=== PATIENT | female | born 1945 | race Caucasian/White ===

== ENCOUNTER → 2022-05-03 11:46 | Outpatient (BNVA) | payer MEDICARE, SELFPAY | PROVIDERS: PCP Internal Medicine; Visit Provider Psychiatry & Neurology Psychiatry | DX: F31.32 Bipolar disorder, current episode depressed, moderate (principal) | CPT/HCPCS: 90833; 99212 ==

== ENCOUNTER → 2022-08-23 11:10 | Outpatient (BNVA) | payer MEDICARE, SELFPAY | PROVIDERS: PCP Internal Medicine; Visit Provider Psychiatry & Neurology Psychiatry | DX: G93.32 Myalgic encephalomyelitis/chronic fatigue syndrome (principal); M79.7 Fibromyalgia; F31.32 Bipolar disorder, current episode depressed, moderate | CPT/HCPCS: 90833; 99212 ==

== ENCOUNTER 2023-01-11 15:50 | Outpatient (AMB) | payer MEDICARE, SELFPAY ==
--- NOTE | 2023-01-11 16:18 | A.OFFPSYCH_ITS ---
Intake Intake Visit Reasons: depression Allergies No Known Allergies Allergy (Verified 05/03/22 11:27) Medication List - Last Reconciled 02/12/23 by Abraham Jimenes MD lamotrigine 100 mg PO DAILY modafinil (Provigil) 50 - 100 mg (0.5 - 1 x 100 mg) PO DAILY omeprazole 20 mg PO BID oxcarbazepine 300 mg PO .QHS 90 days venlafaxine ER 75 mg PO DAILY HPI- Psychiatric Chief Complaint: depression HPI Narrative: Pt seen in f/u mood has been ok feels modafanil very helpful has been taking in nieces kids at times . Fibromyalgia has been quite problematic for her associated with chronic fatigue. The modafinil is somewhat helpful. She has melancholic and ruminating at times regarding the of his son from cancer and memories of this was again triggered by dealing with other cancer in the family.at times ruminates about her past behavior when she was manic and drinking and quite impulsive sexually and drinking heavily even when . Her family and even her ex- remain quite kind in loving to the patient and have excepted her past behavior in the context of bipolar disorder Past Psychiatric History: hx bipolar dx not manic in years has been at php has hx of CFS fibro Mental Status Exam Mental Status Exam Narrative: Mental Status Exam Narrative: Appearance: Casually dressed Behavior: Cooperative appropriate psychomotor: Within normal limits Speech: Normal volume and prosody Thought proccess logical and goal-directed some rumination Thought content: Future oriented no self-harming thoughts recurrent ruminations on of her son from cancer and and thoughts of her past behavior when manic Mood: Mild dysphoria Affect: Appropriate to mood SI:denies HI:denies VH/AH:none Delusions: None Insight/judgment: Good insight and judgment Memory/cog: Intact Reports difficulty with motivation and attention Assessment and Plan Assessment & Plan (1) Bipolar 1 disorder, depressed, moderate: Status: Acute Code(s): F31.32 - Bipolar disorder, current episode depressed, moderate (2) Chronic fatigue disorder: Status: Acute Code(s): G93.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 (3) Fibromyalgia: Status: Acute Code(s): M79.7 - Fibromyalgia Plan Patient does have mild dysphoria has been somewhat socially isolated some of this related to issues related to chronic fatigue and pain patient denies SI no manic symptoms have been triggered by use of modafinil she does feel her quality of life has been better with less fatigue improved energy and increased ability to function could increase modafinil monitor mood closely Could take venlafaxine at bedtime in case contributing to fatigue other options could include augmentation with L methyl folate which may help with both mood and energy consider low-dose Latuda Counseling and coordination of Care Pt. Self Management counseling: Behavior activation Medication management counseling: Effectiveness, Side effects and Dosing range Diagnosis and Prognosis Counseling: Accuracy of diagnosis, Impact of diagnosis on life functions, Impact of family relationship, Problematic behaviors secondary to diagnosis and Adequacy of current interventions Details: I spent [39] minutes reviewing the record, seeing the patient and documenting in the medical record. Counseling provided to the patient/caregiver as outlined below. Addressed patient/caregiver concerns regarding current medication regime including effective adherence. Addressed patient/caregiver concerns regarding diagnosis and prognosis including accuracy of diagnosis, prognosis over time, impact of diagnosis. Addressed patient/caregiver concerns regarding impact of recent stressors. PFSH Medical History (Updated 05/03/22 @ 11:34 by Abraham Jimenes MD) Breast cancer in female Chronic fatigue disorder Osteoarthritis Surgical History (Updated 05/03/22 @ 11:32 by Abraham Jimenes MD) H/O spinal fusion Social History: lives alone 2 sons 1 2 b ENJOYS taking care of grandchildren at times she is retired she used to work an offensive coordinator as an transport assistant Substance History: hx alcohol dependence sober x yrs Trauma History: none Coding Level of Care Code Est Pt Level 3 (41857) Therapy 30m w/E&M (85957) Diagnoses Bipolar 1 disorder, depressed, moderate F31.32 Chronic fatigue disorder G93.32 Fibromyalgia M79.7
== END 2023-01-11 17:42 | disposition home or self-care (01) ==
LOC: HO.HOP 15:50
PROVIDERS: PCP Internal Medicine; Visit Provider Psychiatry & Neurology Psychiatry
DX: F31.32 Bipolar disorder, current episode depressed, moderate (principal); G93.32 Myalgic encephalomyelitis/chronic fatigue syndrome; M79.7 Fibromyalgia
CPT/HCPCS: 90833; 99213

== ENCOUNTER → 2023-01-11 15:50 | Outpatient (BNVA) | payer MEDICARE, SELFPAY | PROVIDERS: PCP Internal Medicine; Visit Provider Psychiatry & Neurology Psychiatry | DX: F31.32 Bipolar disorder, current episode depressed, moderate (principal); G93.32 Myalgic encephalomyelitis/chronic fatigue syndrome; M79.7 Fibromyalgia | CPT/HCPCS: 90833; 99212 ==

== ENCOUNTER 2023-05-26 11:14 | Outpatient (REF) | payer MEDICARE, SELFPAY ==
[2023-05-26 12:46] LABS: MANUAL DIFF FLAG NO
[2023-05-26 13:21] LABS: Basophils Absolute Auto 0.1 X10*3/uL (0.0-0.2); Basophils Percent Auto 1.2 % (0-2); Eosinophils Absolute Auto 0.2 X10*3/uL (0.0-0.4); Eosinophils Percent Auto 2.8 % (0-4); Hematocrit 40.4 % (37.0-47.0); Hemoglobin 13.3 g/dl (12.0-16.0); Imm Gran Abs Auto 0.02 X10*3/uL (0.00-0.03); Imm Gran Pct Auto 0.3 % (0.0-0.4); Lymphocytes Absolute Auto 2.2 X10*3/uL (1.2-4.9); Lymphocytes Percent Auto 37.1 % (20-40); Mean Corpuscular HGB Conc 32.9 g/dl (31.0-35.0); Mean Corpuscular Hemoglobin 32.4 pg (27.0-33.0); Mean Corpuscular Volume 98.5 fL (80.0-98.0); Mean Platelet Volume 10.5 fL (9.4-12.3); Monocytes Absolute Auto 0.4 X10*3/uL (0.1-1.2); Monocytes Percent Auto 6.5 % (2-11); Neutrophils Absolute Auto 3.1 x10*3/uL (2.0-8.3); Neutrophils Percent Auto 52.1 % (45-73); Platelet Count 248 X10*3/uL (160-400); Red Cell Distribution Width 12.4 % (11.0-16.0)
[2023-05-26 14:00] LABS: Alanine Aminotransferase 16 U/L (0-31); Albumin Level 4.3 g/dL (3.5-5.0); Alkaline Phosphatase 57 U/L (39-117); Anion Gap 11 (12-20); Aspartate Amino Transferase 24 U/L (5-31); Bilirubin Total 0.4 mg/dL (0.0-1.0); Blood Urea Nitrogen 19 mg/dL (9-16); Calcium 10.2 mg/dL (8.4-10.2); Carbon Dioxide 28 mmol/L (22-29); Chloride 104 mmol/L (96-108); Estimated Glomerular Filt Rate 60; Glucose Random 92 mg/dL (60-115); Potassium 4.5 mmol/L (3.3-5.1); Sodium 138 mmol/L (135-145); Total Protein 7.7 g/dL (6.5-8.0)
[2023-05-26 14:05] LABS: Cholesterol 260 mg/dL (<200); HDL Cholesterol 94 mg/dL (>40); LDL Cholesterol Calculated 150 mg/dL (<100); Triglycerides 81 mg/dL (<150)
[2023-05-26 14:21] LABS: Vitamin B12 886 pg/mL (200-900)
[2023-05-26 15:12] LABS: Reflex LDLD? No
[2023-05-26 20:29] LABS: Folate 15.5 ng/mL (> or = 4.0)
[2023-05-29 21:08] LABS: Lamotrigine Lamictal 1.5 mcg/mL (2.5-15.0)
== END 2023-05-26 11:15 | disposition home or self-care (01) ==
LOC: HO.LAB 11:14
PROVIDERS: PCP Internal Medicine; Visit Provider Psychiatry & Neurology Psychiatry
DX: G93.32 Myalgic encephalomyelitis/chronic fatigue syndrome (principal); F31.32 Bipolar disorder, current episode depressed, moderate; M19.90 Unspecified osteoarthritis, unspecified site; Z79.899 Other long term (current) drug therapy
CPT/HCPCS: 36415; 80053; 80061; 80175; 82607; 82746; 84443; 85025; 99212

== ENCOUNTER 2023-05-26 11:14 | Outpatient (AMB) | payer MEDICARE, SELFPAY ==
--- NOTE | 2024-03-11 09:32 | MHC.OFFVISPS ---
Intake Intake Visit Reasons: Depression Allergies No Known Allergies Allergy (Verified 05/03/22 11:27) Medication List - Last Reconciled 05/26/23 by Abraham Jimenes MD lamotrigine 100 mg PO DAILY modafinil (Provigil) 50 - 100 mg (0.5 - 1 x 100 mg) PO DAILY omeprazole 20 mg PO BID oxcarbazepine 300 mg PO .QHS 90 days venlafaxine ER 75 mg PO DAILY HPI- Psychiatric Chief Complaint: Depression HPI Narrative: Patient seen psychiatric follow-up. Patient tends to downplay many of her symptoms has endorsed no symptoms on the PHQ-9 and LANA. Patient has chronic fatigue and issues related to chronic pain. Narcotics during the day in the past Ultram she has felt overly medicated and at times confused. Patient has been flat a motivational feels low-dose modafinil has been somewhat helpful there is a longstanding history of chronic fatigue. History of chronic hip and spinal pain Patient on Lamictal 100 mg Effexor modafinil no clear manic elevated episodes. She does tend to ruminate regarding the past many years ago when it had significantly interfered with her ex- and children. Patient remains sober from alcohol for many years. She has been more socially isolated does see her family. Has a level of chronic despair denies any active self-harming thoughts Past Psychiatric History: hx bipolar dx not manic in years has been at [facility] has hx of CFS fibro Mental Status Exam Mental Status Exam Narrative: Mental Status Exam Narrative: Appearance: Casually dressed Behavior: Cooperative appropriate psychomotor: Within normal limits Speech: Normal volume and prosody Thought proccess logical rumination Thought content: Focused on lack of quality of life dealing with pain ongoing Mood: Depressed constricted Affect: Appropriate to mood constricted SI:denies question some degree of helplessness dealing with chronic pain HI:denies VH/AH:none Delusions: None Insight/judgment: Fair insight at times regarding self-care Memory/cog: Alert does describe some difficulty with attention at times oriented x4 Reports difficulty with motivation and attention Assessment and Plan Assessment & Plan (1) Bipolar 1 disorder, depressed, moderate: Status: Acute Code(s): F31.32 - Bipolar disorder, current episode depressed, moderate (2) Chronic fatigue disorder: Status: Acute Code(s): G93.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 (3) Fibromyalgia: Status: Acute Code(s): M79.7 - Fibromyalgia Plan Patient with some periods of variable attention unclear related to any progressive cognitive impairment versus medication effect versus other etiologies. Discussed with patient check labs DC if any contributing factors including B12 folate TSH electrolytes discussed options for more intensive neurological evaluation did not want to complete a Lotus no burning on urination. Discussed option brain MRI Orders: Orders Comprehensive Met. 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, F31.32 - Bipolar disorder, current episode depressed, moderate, M19.90 - Unspecified osteoarthritis, unspecified site Lamotrigine Lamictal 05/26/23 G93.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, F31.32 - Bipolar disorder, current episode depressed, moderate, M19.90 - Unspecified osteoarthritis, unspecified site Vitamin B12 and Folate 05/26/23 G93.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, F31.32 - Bipolar disorder, current episode depressed, moderate, M19.90 - Unspecified osteoarthritis, unspecified site Lipid Panel with Reflex 05/26/23 G93.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, F31.32 - Bipolar disorder, current episode depressed, moderate, M19.90 - Unspecified osteoarthritis, unspecified site Counseling and coordination of Care Details-Self Mgmt counseling: Issues related to feeling lack of quality of life strategies to help improve options to get more support in the house Issues related to managing life with issues related to chronic pain has been dysthymic discussed option of L methyl folate Medication management counseling: Effectiveness and Side effects Details-Med Mgmt counseling: No manic symptoms noted Diagnosis and Prognosis Counseling: Adequacy of current interventions Details: I spent [35] minutes reviewing the record, seeing the patient and documenting in the medical record. Counseling provided to the patient/caregiver as outlined below. Addressed patient/caregiver concerns regarding current medication regime including effective adherence. Addressed patient/caregiver concerns regarding diagnosis and prognosis including accuracy of diagnosis, prognosis over time, impact of diagnosis. Addressed patient/caregiver concerns regarding impact of recent stressors. 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
== END 2023-05-26 12:43 | disposition home or self-care (01) ==
LOC: HO.HOP 11:14
PROVIDERS: PCP Internal Medicine; Visit Provider Psychiatry & Neurology Psychiatry
DX: F31.32 Bipolar disorder, current episode depressed, moderate (principal); G93.32 Myalgic encephalomyelitis/chronic fatigue syndrome; M79.7 Fibromyalgia
CPT/HCPCS: 99214

== ENCOUNTER → 2023-07-28 11:49 | Outpatient (BNVA) | payer MEDICARE, SELFPAY | PROVIDERS: PCP Internal Medicine; Visit Provider Psychiatry & Neurology Psychiatry | DX: F31.32 Bipolar disorder, current episode depressed, moderate (principal); G93.32 Myalgic encephalomyelitis/chronic fatigue syndrome; M79.7 Fibromyalgia; M19.90 Unspecified osteoarthritis, unspecified site | CPT/HCPCS: 99212 ==

== ENCOUNTER → 2023-07-28 11:49 | Outpatient (AMB) | payer MEDICARE, SELFPAY ==
--- NOTE | 2023-07-28 13:03 | MHC.OFFVISPS ---
Intake Intake Visit Reasons: depression Allergies No Known Allergies Allergy (Verified 05/03/22 11:27) HPI- Psychiatric Chief Complaint: depression HPI Narrative: Patient seen psychiatric follow-up. She has been somewhat discouraged tends to downplay her symptoms. She has had more fatigue periods of lower energy and amotivation she does have history of chronic fatigue which had been doing much better. She does find Provigil helpful and apparently this has not contributed reportedly to agitation anxiety or [place]. She has been on very low-dose Lamictal Trileptal has never allowed higher therapeutic doses venlafaxine she has been times ruminating regarding her past behavior when she was younger and how she treated other people particularly men she would dated when she had been manic Past Psychiatric History: hx bipolar dx not manic in years has been at php has hx of CFS fibro Mental Status Exam Mental Status Exam Narrative: Mental Status Exam Narrative: Appearance: Casually dressed Behavior: Cooperative appropriate psychomotor: Within normal limits Speech: Normal volume and prosody Thought proccess logical and goal-directed some rumination Thought content: Future oriented no self-harming thoughts connected with grandchildren rumination of her past behavior when manic Mood: Mild dysphoria Affect: Appropriate to mood constricted SI:denies question some degree of helplessness HI:denies VH/AH:none Delusions: None Insight/judgment: Fair insight at times regarding self-care Memory/cog: Alert does describe some difficulty with attention at times oriented x4 Reports difficulty with motivation and attention Assessment and Plan Assessment & Plan (1) Bipolar 1 disorder, depressed, moderate: Status: Acute Code(s): F31.32 - Bipolar disorder, current episode depressed, moderate (2) Chronic fatigue disorder: Status: Acute Code(s): 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 Monitor cognitive issues patient questioning her attention some of this may relate to pain management has significant chronic pain some of which related to history of back surgery and chronic bursitis Medications: Changed From lamotrigine 100 mg PO DAILY 90 tabs 1RF To lamotrigine 150 mg PO BEDTIME 30 tabs 1RF 30 days Counseling and coordination of Care Pt. Self Management counseling: Breathing, Exercise and Maintenance-social rhythm Details-Self Mgmt counseling: Encourage daily activities Medication management counseling: Effectiveness and Side effects Diagnosis and Prognosis Counseling: Impact of diagnosis on life functions and Adequacy of current interventions Details-Diagnosis/Prognosis counseling: Also discussed option of L methyl folate for augmentation Lamictal increased to 150 mg monitor mood and response encourage regular counseling patient has been resistant to this recommendation for an extended period of time Details: I spent [40] minutes reviewing the record, seeing the patient and documenting in the medical record. Counseling provided to the patient/caregiver as outlined below. Addressed patient/caregiver concerns regarding current medication regime including effective adherence. Addressed patient/caregiver concerns regarding diagnosis and prognosis including accuracy of diagnosis, prognosis over time, impact of diagnosis. Addressed patient/caregiver concerns regarding impact of recent stressors. 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
== END ==
PROVIDERS: PCP Internal Medicine; Visit Provider Psychiatry & Neurology Psychiatry
DX: F31.32 Bipolar disorder, current episode depressed, moderate (principal); G93.32 Myalgic encephalomyelitis/chronic fatigue syndrome; M79.7 Fibromyalgia; M19.90 Unspecified osteoarthritis, unspecified site
CPT/HCPCS: 90833; 99213

== ENCOUNTER 2023-12-13 14:10 | Outpatient (AMB) | payer MEDICARE, SELFPAY ==
--- NOTE | 2023-12-13 21:14 | A.OFFPSYCH_ITS ---
Intake Intake Visit Reasons: depression Allergies No Known Allergies Allergy (Verified 05/03/22 11:27) Medication List - Last Reconciled 12/13/23 by Abraham Jimenes MD albuterol sulfate 90 mcg/actuation inhalation lamotrigine 100 mg PO DAILY modafinil (Provigil) 50 - 100 mg (0.5 - 1 x 100 mg) PO DAILY omeprazole 20 mg PO BID oxcarbazepine 300 mg PO .QHS 90 days venlafaxine ER 75 mg PO DAILY HPI- Psychiatric Chief Complaint: depression HPI Narrative: Patient appears somewhat depressed apathetic and withdrawn she has had some periods of confusion when taking pain medications currently has stopped use of Ultram and low-dose oxycodone. She is having difficulty sleeping has significant chronic pain from fibromyalgia chronic back other orthopedic problems she is somewhat demoralized has not wanted to make any medication changes she has had some difficulty at times with working attention sometimes this may relate to pain medication Past Psychiatric History: hx bipolar dx not manic in years has been at [facility] has hx of CFS fibro Mental Status Exam Mental Status Exam Narrative: Mental Status Exam Narrative: Appearance: Casually dressed Behavior: Cooperative appropriate psychomotor: Within normal limits Speech: Normal volume and prosody Thought proccess logical rumination Thought content: Focused on lack of quality of life dealing with pain Mood: Depressed constricted Affect: Appropriate to mood constricted SI:denies question some degree of helplessness dealing with chronic pain at times wishes she were but denies any plan or intent HI:denies VH/AH:none Delusions: None Insight/judgment: Fair insight at times regarding self-care Memory/cog: Alert does describe some difficulty with attention at times oriented x4 Reports difficulty with motivation and attention Assessment and Plan Assessment & Plan (1) Bipolar 1 disorder, depressed, moderate: Status: Acute Code(s): F31.32 - Bipolar disorder, current episode depressed, moderate (2) Chronic fatigue disorder: Status: Acute Code(s): G93.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 (3) Fibromyalgia: Status: Acute Code(s): M79.7 - Fibromyalgia Plan Lamictal decreased higher dose may have contributed to some periods of lack of alertness check labs encourage increase activities Consider brain MRI patient not wanting to have workup states she will be okay no active self-harming thoughts Medications: Changed From lamotrigine 150 mg PO BEDTIME 30 days 30 tabs 1RF To lamotrigine 100 mg PO DAILY 90 tabs 1RF Counseling and coordination of Care Details-Self Mgmt counseling: Issues related to low mood as chronic pain does feel connected with grandchildren and neighbors Medication management counseling: Effectiveness, Side effects and Dosing range Diagnosis and Prognosis Counseling: Impact of diagnosis on life functions and Adequacy of current interventions Details-Diagnosis/Prognosis counseling: Strongly urged consideration of Latuda or Vraylar patient has felt modafinil helpful Details: I spent [39] minutes reviewing the record, seeing the patient and documenting in the medical record. Counseling provided to the patient/caregiver as outlined below. Addressed patient/caregiver concerns regarding current medication regime including effective adherence. Addressed patient/caregiver concerns regarding diagnosis and prognosis including accuracy of diagnosis, prognosis over time, impact of diagnosis. Addressed patient/caregiver concerns regarding impact of recent stressors. [facility] Medical History (Updated 05/03/22 @ 11:34 by Abraham Jimenes MD) Chronic fatigue disorder Osteoarthritis Breast cancer in female Surgical History (Updated 05/03/22 @ 11:32 by Abraham Jimenes MD) H/O spinal fusion Social History: lives alone 2 sons 1 2 b ENJOYS taking care of grandchildren at times she is retired she used to work an psychology assistant as an election assistant Substance History: hx alcohol dependence sober x yrs Trauma History: none Coding Level of Care Code Est Pt Level 3 (77867) Therapy 30m w/E&M (45029) Diagnoses Bipolar 1 disorder, depressed, moderate F31.32 Chronic fatigue disorder G93.32 Fibromyalgia M79.7
== END 2023-12-13 15:54 | disposition home or self-care (01) ==
LOC: HO.HOP 14:10
PROVIDERS: PCP Internal Medicine; Visit Provider Psychiatry & Neurology Psychiatry
DX: F31.32 Bipolar disorder, current episode depressed, moderate (principal); G93.32 Myalgic encephalomyelitis/chronic fatigue syndrome; M79.7 Fibromyalgia
CPT/HCPCS: 90833; 99213

== ENCOUNTER → 2023-12-13 14:10 | Outpatient (BNVA) | payer MEDICARE, SELFPAY | PROVIDERS: PCP Internal Medicine; Visit Provider Psychiatry & Neurology Psychiatry | DX: F31.32 Bipolar disorder, current episode depressed, moderate (principal); G93.32 Myalgic encephalomyelitis/chronic fatigue syndrome; M79.7 Fibromyalgia | CPT/HCPCS: 99212 ==

== ENCOUNTER 2024-05-30 13:44 | Outpatient (AMB) | payer MEDICARE, SELFPAY ==
--- OUTSIDE RECORDS SUMMARY | 2024-05-30 13:46 | XMS_ITS | Patient Health Record ---
Author Organization [facility] Address [address] [place] [address] Care Team Providers Care Dental Ceramist Name Role Phone Savannah Quigley MD Primary Care Provider Edmond solorzano Marilyn Dickson Unavailable [phone] Allergies No Known Allergies Reason For Referral No Information Medications Medication SIG (Take, Route, Fr equency, Duration) Notes Start Date End Date Status Meloxicam 15 MG 1 tablet Orally Once a day for 30 day(s) Not-Taking Vitamin D Active Omeprazole Active Anastrozole 1 MG 1 tablet Orally Once a day Not-Taking Lyrica 75 MG 1 capsule Orally Not-Taking One Daily Not-Taking Biotin Not-Taking Effexor Active traMADol HCl Not-Meng ing Trileptal Active LaMICtal Active Social History Tobacco use other than smoking: Question Answer Notes Are you an other tobacco user? No Problems Problem Type SNOMED Code ICD Code Onset Dates Problem Status W/U Status Risk Notes Problem Acquired hammer toe of right foot (4177002536452495) Other hammer toe(s) (acquired), right foot (M20.41) Active confirmed Problem Localized, primary osteoarthritis of the ankle and/or foot (222821758) Primary osteoarthriti s, right ankle and foot (M19.071) Active confirmed Problem [id number] Arthritis of left ankle (M19.072) Active confirmed Plan Of Treatment Pending Test Test Name Order Date X ray : Foot, left 2V 03/15/2016 X ray : Foot, right 3V 04/19/2019 [id number], [id number] INJECT or DRAIN, JOINT/BUR SA 09/10/2021 Insurance Providers Payer Name Payer Address Payer Phone Subscriber Number Group Number Insured Name Patient Relationship to Insured Coverage Start Date Coverage End Date [employer] [place] Medicare Advantage [facility] [address] [place] [address] [id number] Laura Montesinos Self - patient is the insured Medical (General) History Medical History History ICD Code osteoarthritis Back,Hip,and Knee pain Cataracts Fibromyalgia Gall bladder problems Psychiatric disorder, bi-polar Chicken pox Measles Mumps Arthritis Cancer Psychiatric disorder Surgical History Surgery Date(Month/Year) Bi-Lateral Cataract 2006 Lumpectomy L Breast 2010 Hammer toe R foot-unsucessful 02/2013 Gallbladder 01/2014 Hand Surgery 2019 Hospitalization History Reason Date(Month/Year) Wing- dizzy, nausea, shortness of breath 09/06/21
--- NOTE | 2024-05-30 16:56 | A.OFFPSYCH_ITS ---
Intake Intake Visit Reasons: depression Allergies No Known Allergies Allergy (Verified 06/06/24 13:37) Medication List - Last Reconciled 05/30/24 by Abraham Jimenes MD albuterol sulfate 90 mcg/actuation inhalation atorvastatin 20 mg PO DAILY lamotrigine 100 mg PO DAILY modafinil (Provigil) 50 - 100 mg (0.5 - 1 x 100 mg) PO DAILY omeprazole 20 mg PO BID oxcarbazepine 300 mg PO .QHS 90 days oxycodone 5 mg PO DAILY venlafaxine ER 75 mg PO DAILY HPI- Psychiatric Chief Complaint: depression HPI Narrative: Patient seen in psychiatric follow-up has been dealing with chronic fatigue and some degree of chronic pain not easily relieved. Patient does get discouraged about her life at times denies confusional episodes like she may have had prev iously when taking pain medication. She does feel low-dose modafinil has been quite helpful in allowing her to function denies mood instability lability irritability. Does at times get discouraged regarding her life but denies self- harming thoughts. Patient has had spinal surgery in the past. Has been generally stable on low-dose oxcarbazepine Effexor past history of alcoholism many years ago past history of [place] not for years Past Psychiatric History: hx bipolar dx not manic in years has been at [facility] has hx of CFS fibro Mental Status Exam Mental Status Exam Narrative: Mental Status Exam Narrative: Appearance: Casually dressed Behavior: Cooperative appropriate psychomotor: Within normal limits Speech: Normal volume and prosody Thought proccess logical rumination Thought content: Focused on lack of quality of life dealing with pain some degree of isolation does not wish to cooperate with cognitive testing Mood: Depressed constricted Affect: Appropriate to mood constricted SI:denies question some degree of helplessness dealing with chronic pain at erendira es wishes she were but denies any plan or intent ongoing HI:denies VH/AH:none Delusions: None Insight/judgment: Fair insight at times regarding self-care Memory/cog: Alert does describe some difficulty with attention at times oriented x4 Reports difficulty with motivation and attention but improved since being on modafinil feels this is helpful denies feeling overly stimulated racing thoughts or mood lability Assessment and Plan Assessment & Plan (1) Bipolar 1 disorder, depressed, moderate: Status: Acute Code(s): F31.32 - Bipolar disorder, current episode depressed, moderate (2) Synovial cyst of lumbar spine: Status: Acute Code(s): M71.38 - Other bursal cyst, other site (3) Chronic back pain greater than 3 months duration: Status: Acute Code(s): M54.9 - Dorsalgia, unspecified; G89.29 - Other chronic pain (4) Osteoarthritis: Status: Acute Code(s): M19.90 - Unspecified osteoarthritis, unspecified site (5) Chronic fatigue disorder: Status: Acute Code(s): G93.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 Plan Patient relatively stable tends to be somewhat guarded and dismissive regarding condition. Chronically somewhat demoralized regarding isolation dealing chronic pain. Still functions independently no gross word-finding problems or cognitive issues on casual exam did not wish to cooperate cognitive testing continue modafinil low-dose Effexor oxcarbazepine Lamictal has been relatively stable times years. Make neuro spine referral for 2nd opinion Orders: Referrals Neuro Spine Referral M71.38 - Other bursal cyst, other site, M54.9 - Dorsalgia, unspecified, G89.29 - Other chronic pain Counseling and coordination of Care Medication management counseling: Effectiveness and Side effects Diagnosis and Prognosis Counseling: Impact of diagnosis on life functions and Adequacy of current interventions Details: I spent [38] minutes reviewing the record, seeing the patient and documenting in the medical record. Counseling provided to the patient/caregiver as outlined below. Addressed patient/caregiver concerns regarding current medication regime including effective adherence. Addressed patient/caregiver concerns regarding diagnosis and prognosis including accuracy of diagnosis, prognosis over time, impact of diagnosis. Addressed patient/caregiver concerns regarding impact of recent stressors. 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
== END 2024-05-30 15:13 | disposition home or self-care (01) ==
LOC: HO.HOP 13:44
PROVIDERS: PCP Internal Medicine; Visit Provider Psychiatry & Neurology Psychiatry
DX: F31.32 Bipolar disorder, current episode depressed, moderate (principal); M71.38 Other bursal cyst, other site; M54.9 Dorsalgia, unspecified; G89.29 Other chronic pain; M19.90 Unspecified osteoarthritis, unspecified site; G93.32 Myalgic encephalomyelitis/chronic fatigue syndrome
CPT/HCPCS: 90833; 99213

== ENCOUNTER → 2024-05-30 13:44 | Outpatient (BNVA) | payer MEDICARE, SELFPAY | PROVIDERS: PCP Internal Medicine; Visit Provider Psychiatry & Neurology Psychiatry | DX: F31.32 Bipolar disorder, current episode depressed, moderate (principal); M71.38 Other bursal cyst, other site; M54.9 Dorsalgia, unspecified; G89.29 Other chronic pain; M19.90 Unspecified osteoarthritis, unspecified site; G93.32 Myalgic encephalomyelitis/chronic fatigue syndrome | CPT/HCPCS: 99212 ==

== ENCOUNTER 2024-06-06 13:30 | Outpatient (REF) | payer MEDICARE, SELFPAY | END 2024-06-06 13:31 | disposition home or self-care (01) | LOC: HO.HOSX 13:30 | PROVIDERS: PCP Internal Medicine; Referring Provider Psychiatry & Neurology Psychiatry; Visit Provider Physician Assistant | DX: M54.9 Dorsalgia, unspecified (principal); G89.29 Other chronic pain | CPT/HCPCS: 72110; 99202 ==

== ENCOUNTER 2024-06-06 13:30 | Outpatient (AMB) | payer MEDICARE, SELFPAY ==
--- NOTE | 2024-06-06 13:33 | A.SPINEOV_ITS ---
Vital Signs 06/06/24 13:36 Height 5 ft 4 in Weight 130 lb BMI 22.3 Intake Visit Reasons: Dorsalgia Intake Note: Ms. Montesinos is here today c/o back pain. Dehydrating Press Operator Required: No Allergies No Known Allergies Allergy (Verified 06/06/24 13:37) Physical Exam Vital Signs: BMI result Body Mass Index 22.3 Assessment & Plan Assessment & Plan (1) Chronic back pain greater than 3 months duration: Code(s): M54.9 - Dorsalgia, unspecified; G89.29 - Other chronic pain Category: Medical Plan Dear Dr. Jimenes Thank you for referring Mrs Montesinos to our office today. She is a very nice 79-year-old female who has undergone 2 lumbar surgeries, the 1st was an L4-5 posterior lumbar interbody fusion with Dr. Aragon in 2019, the 2nd was a postoperative right L5-S1 synovial cyst resection which was done shortly after that surgery. That was done by Dr. Gonzalez. The patient had tremendous relief from those operations, but immediately after the surgery she noticed a right sided low back pain. It centered over the right SI joint, just over the iliac crest on the right side. It was tolerable at 1st but over the last few years has gotten to the point now where it is incapacitating. She will have the pain from the moment she gets out of bed in the morning. Ice seems to be the only thing that helps it. She has tried ibuprofen, Tylenol, gabapentin, oxycodone without any relief. She is seen at the [facility] pain management and has undergone numerous rounds of injections including SI joints as well as facet blocks without any improvement. She went back to see Dr. Gonzalez, and has had postoperative MRIs showing some degenerative changes at L5-S1 in the facet joint on the right with a small synovial cyst. He recommended she just continue on with the conservative management. She is very frustrated with her quality of life at this point because she can not do more than 1 simple task or air in dur ing the day and have to come home. Flexing in the position of doing something like vacuum cleaning or bending over to get something will cause her to have tremendous amounts of pain. She is able to squat down with a [place] pick things up and that seems to be okay. There is no shooting pain down the leg, tingling numbness etc.. She is here today for 2nd opinion. PMH: History of spinal fusion, lumpectomy, right hand surgery, high cholesterol, depression. Social hx: She has not smoke, drink use any recreational drugs Medications: Effexor, Trileptal, atorvastatin, oxycodone as needed, Lamictal, modafinil, vitamin-D Allergies: None Physical exam: She is awake alert oriented, she walks with a slightly flexed posture and she limps because of the pain. She has full strength and normal reflexes in the upper extremities, maybe slightly brisk 3+ in the lower extremity. She can localize the tenderness with palpation over the right iliac crest, SI joint region, so I would call this positive finger Armond. She does have positive RASHMI testing ipsilateral I can reproduce the pain. Positive Gaenslen testing as well. There is a large midline incision well healed. Imaging review: There is a lumbar MRI done at [facility] December of 2023 showing evidence of fusion at L4-5 with appropriate placement of instrumentation hardware. There is postsurgical changes at the right L5-S1 lamina with scar tissue and no obvious nerve root compression. There is a small synovial cyst. She appears to have a slightly scoliotic curvature but is difficult to evaluate without a coronal view. There are some degenerative changes at L2-3. Impression: 79-year-old female with a history of an L4-[address] Mckeon, in 2019 with postoperative synovial cyst resection at L5-S1 by Dr. Nancy taylor. That was done about 6 months or so after the original surgery. She recovered tremendously from these surgeries with no residual leg pain, but she has been left with a right-sided low back pain that is been troubling her and at this point almost disabling her. She can barely stand for more than 10 minutes before she has to sit back down. The pain will not go away with the exception of putting ice packs on it. She has tried numerous rounds of conservative treatment in injections all of which have failed. Her MRI shows some degenerative changes at the L5-S1 level but no significant changes in alignment or severe disc collapse. The pain localizes very well to the SI joint, right iliac crest region. I can palpate the area and push on it reproduce her pain as well as positive RASHMI testing, positive Gaenslen testing. Although she has had injections in the right SI joint, it seems to me this is probably some degree of an adjacent segment issue giving her pain. I would like to get a set of standing flexion-extension x-rays, specifically I want to see what her back looks like an a flexed posture and to see if there is scoliosis. I would also like to have her bring in a copy of a postoperative CT scan she had done so we can take a better look at the lower part of the lumbar spine and maybe there is some overlap into the SI joint as well. Once I have the x-rays and the CT I will review with Dr. Oconnor. Thank you for allowing us to care for your patient. The total time spent with this visit with this patient was 45 minutes reviewing history, physical exam, lumbar imaging review, and implementation of treatment plan or further diagnostic testing Papi Oconnor MD,PhD [facility] Orders: Orders XR lumbar spine 4V min Today G89.29 - Other chronic pain, M54.9 - Dorsalgia, unspecified Coding Level of Care Code New Pt Level 4 (28256) Diagnoses Chronic back pain greater than 3 months duration M54.9; G89.29
--- OUTSIDE RECORDS SUMMARY | 2024-06-06 13:33 | XMS_ITS | Patient Health Record ---
Author Organization [facility] Address [address] [place] [address] Care Team Providers Care President Financial Institution Name Role Phone Savannah Quigley MD Primary Care Provider Edmond solorzano Marilyn Dickson Unavailable [phone] Allergies No Known Allergies Reason For Referral [...] Problem Acquired hammer toe of right foot ([id number]) Other hammer toe(s) (acquired), right foot (M20.41) Active confirmed Problem Localized, primary osteoarthritis of the ankle and/or foot (798451209) Primary osteoarthriti s, right ankle and foot (M19.071) Active confirmed Problem [id number] Arthritis of left ankle (M19.072) Active confirmed Plan Of Treatment Pending Test Test Name Order Date X ray : Foot, left 2V 03/15/2016 X ray : Foot, right 3V 04/19/2019 90745, J0702- INJECT or DRAIN, JOINT/BUR SA 09/10/2021 Insurance Providers Payer Name Payer Address Payer Phone Subscriber Number Group Number Insured Name Patient Relationship to Insured Coverage Start Date Coverage End Date [employer] [place] [employer]age [facility] [address] [place] [address] [id number] Laura Montesinos Self - patient is the [...]
[2024-06-06 13:36] VITALS: BMI 22.3
== END 2024-06-06 15:17 | disposition home or self-care (01) ==
PROVIDERS: PCP Internal Medicine; Referring Provider Psychiatry & Neurology Psychiatry; Visit Provider Physician Assistant
DX: M54.9 Dorsalgia, unspecified (principal); G89.29 Other chronic pain
CPT/HCPCS: 99204

== ENCOUNTER 2024-07-05 10:51 | Outpatient (AMB) | payer MEDICARE, SELFPAY ==
--- NOTE | 2024-07-05 11:36 | HO.SPINEOV ---
Intake Visit Reasons: re-revaluate surgical options Intake Note: Ms. Carrillo is here today to Discuss surgical plan. Mineralogy Professor Required: No Allergies No Known Allergies Allergy (Verified 07/05/24 11:36) Assessment & Plan Assessment & Plan (1) Synovial cyst of lumbar spine: Code(s): M71.38 - Other bursal cyst, other site Category: Medical Plan Mrs carrillo came back in today for follow-up. Dr. Oconnor and I saw her together. Please see the last note for the specifics of the problem. The pain she is having localizes itself well to either the right L5-S1 facet joint or the right SI joint. We reviewed her MRI again today. It is loaded into our imaging system and it shows that there is indeed still assist in the area where she had the previous synovial cyst resected at L5-S1 in the facet joint. We believe that because the symptoms started right after the fusion and it progressively gotten worse, and she ultimately ended up needing a surgery for cyst removal that there was some instability in the joint. Dr. Oconnor is willing to offer her a right L5-S1 facetectomy and pedicle screw replacement with removal of the old hardware on the right. We discussed the fact that we believe it would help her symptoms but they are his be no way to guarantee 100% improvement. She is going to think about it and get back to us how she would like to proceed. Pt was given risk and benefits of surgery including but not limited to infection, hematoma , nerve injury,durotomy, weakness,bowel/bladder injury, persistent pain, as well as the option to continue with conservative treatment and patient wishes to proceed with surgery. Pt is aware they should stop their motrin, aspirin 7 days prior to surgery. All questions were answered to the best of our ability. If there is anything about this patients medical history that we have overlooked or concerns you have about us proceeding with surgery we would appreciate any input you can offer. Total amount of time spent in this visit was 20 minutes in discussion of symptoms, lumbar imaging results and subsequent plan of care Papi Oconnor MD,PhD [facility] Coding Level of Care Code Est Pt Level 3 (97783) Diagnoses Synovial cyst of lumbar spine M71.38
== END 2024-07-05 12:08 | disposition home or self-care (01) ==
PROVIDERS: PCP Internal Medicine; Visit Provider Physician Assistant
DX: M71.38 Other bursal cyst, other site (principal)
CPT/HCPCS: 99213

== ENCOUNTER → 2024-07-05 10:51 | Outpatient (BNVA) | payer MEDICARE, SELFPAY | PROVIDERS: PCP Internal Medicine; Visit Provider Physician Assistant | DX: M71.38 Other bursal cyst, other site (principal) | CPT/HCPCS: 99212 ==

== ENCOUNTER 2024-08-30 12:27 | Outpatient (AMB) | payer MEDICARE, SELFPAY ==
--- NOTE | 2024-08-30 13:07 | A.OFFPSYCH_ITS ---
Intake Intake Visit Reasons: depression Allergies No Known Allergies Allergy (Verified 07/05/24 11:36) Medication List - Last Reconciled 09/08/24 by Abraham Jimenes MD albuterol sulfate 90 mcg/actuation inhalation atorvastatin 20 mg PO DAILY lamotrigine 100 mg PO DAILY modafinil (Provigil) 50 - 100 mg (0.5 - 1 x 100 mg) PO DAILY omeprazole 20 mg PO BID oxcarbazepine 300 mg PO .QHS 90 days oxycodone 5 mg PO DAILY venlafaxine ER 75 mg PO DAILY HPI- Psychiatric Chief Complaint: depression HPI Narrative: Pt seen in f/u hx bipolar fibro cfs that has improved uses midfulness is considering doing surgery after consult with the spinal surgical team here. Patient's chronic fatigue is improved half tab modafinil 50 mg denies any manic symptoms. She has limited any pain management does feel frustrated at times feels like her mind is clear off of any daytime narcotic medicine for pain she is on modafinil Effexor she does get discouraged at times. Still ruminates at times regarding past which she can such as bad behavior when she was manic many years ago. No alcohol or substance abuse Past Psychiatric History: hx bipolar dx not manic in years has been at php has hx of CFS fibro Mental Status Exam Mental Status Exam Narrative: Mental Status Exam Narrative: Appearance: Casually dressed Behavior: Cooperative appropriate psychomotor: Within normal limits Speech: Normal volume and prosody Thought proccess logical rumination Thought content: Focused on pain interfering with her quality of life states future oriented denies any thoughts of self-harm focused on treatment managing her medical conditions and chronic pain Mood: Okay constricted Affect: Appropriate to mood constricted SI:denies question some degree of helplessness dealing with chronic pain at times wishes she were but denies any plan or intent ongoing Discontinues to be true still feels connected with family and has engagement with neighbors HI:denies VH/AH:none Delusions: None Insight/judgment: Fair insight at times regarding self-care Memory/cog: Alert does describe some difficulty with attention at times oriented x4 Reports difficulty with motivation and attention but improved since being on modafinil feels this is helpful denies feeling overly stimulated racing thoughts or mood lability discontinues to be true Assessment and Plan Assessment & Plan (1) Bipolar 1 disorder, depressed, moderate: Status: Acute Code(s): F31.32 - Bipolar disorder, current episode depressed, moderate (2) Chronic back pain greater than 3 months duration: Status: Acute Code(s): M54.9 - Dorsalgia, unspecified; G89.29 - Other chronic pain (3) Fibromyalgia: Status: Acute Code(s): M79.7 - Fibromyalgia (4) Osteoarthritis: Status: Acute Code(s): M19.90 - Unspecified osteoarthritis, unspecified site Plan Continue plan of care patient states she is generally feeling stable current regimen denies feeling overly stimulated denies cycling somewhat hopeful regarding possible surgery no active SI remains engaged with family and friends in the building she do help her as needed She is restricted by her physical health and chronic pain issues Patient has never wanted to consider change in medication adjusting any dosing or possibility of supportive counseling an ongoing manner Have discussed with the patient possibility of medication such as Latuda Vraylar patient has not been willing to consider Counseling and coordination of Care Pt. Self Management counseling: Light exposure, Mindfulness, Behavior activation and Cognitive restructuring Diagnosis and Prognosis Counseling: Impact of diagnosis on life functions and Adequacy of current interventions Details: I spent [39] minutes reviewing the record, seeing the patient and documenting in the medical record. Counseling provided to the patient/caregiver as outlined below. Addressed patie nt/caregiver concerns regarding current medication regime including effective adherence. Addressed patient/caregiver concerns regarding diagnosis and prognosis including accuracy of diagnosis, prognosis over time, impact of diagnosis. Addressed patient/caregiver concerns regarding impact of recent stressors. 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
--- OUTSIDE RECORDS SUMMARY | 2024-08-30 14:00 | XMS_ITS | Clinical Summary ---
Author Organization [address] [facility] Address [address] [place] [address] Phone Care Team Providers Care Software Support Technician Name Role Phone Amaya Quigley MD Primary Care Provider Allergies No known active allergies Medications albuterol HFA (PROAIR HFA ; PROVENTIL HFA ; VENTOLIN HFA) 90 mcg/actuation inhaler INHALE 2 PUFFS BY MOUTH EVERY 6 HOURS NEEDED FOR WHEEZING / SHORTNESS OF BREATH 4 Active atorvastatin (LIPITOR) 40 mg tablet Take 1 tablet (40 mg total) by mouth 1 (one) time each day. 4 Active lamoTRIgine (LaMICtal) 100 mg tablet Take 1 tablet (100 mg total) by mouth 1 (one) time each day. Active modafiniL (PROVIGIL) 100 mg tablet 0 Refills, Maintenance, 04/11/24 14:13:00 EDT, Partial fill upon patient request if the prescription is for a schedule II opioid drug. 4 Active omeprazole (PriLOSEC) [address] capsule TK 1 C PO QD 9 Active TrileptaL 300 mg tablet Take 1 tablet (300 mg total) by mouth. 5 Active oxyCODONE (ROXICODONE) 5 mg immediate release tablet TAKE 1/2 TO 1 TABLET BY MOUTH DAILY AT NIGHT FOR CHRONIC BACK PAIN 4 Active venlafaxine XR (EFFEXOR-XR) 75 mg 24 hr capsule 7 Active Active Problems Problem Noted Date Diagnosed Date Chronic right-sided low back pain without sciati ca 05/10/2024 Assessment & Plan (05/10/2024 5:12 PM EST): I reviewed the MRI findings in detail with Ms. Montesinos. She was here for second opinion on whether or not she should proceed with fusion extension to L5-S1. The right sided synovial cyst is quite small though apparently it has increased a little bit since the prior scan 3 years ago. She is asymptomatic from this with no right leg radiculopathy, as such, I would not recommend surgery for that alone. I believe the issue is whether or not that degenerative facet is the source of her chronic right-sided low back pain in which case a fusion would be an option. It is difficult to differentiate this from her history of sacroiliitis as I cannot palpate the 2 separately on exam. She says that previous SI joint injections did not help but she has had extensive treatment at pain management so they may have tried other injections. We will try to obtain the records from Dr. Morales to see if they have tried facet injections and the documentation as to whether anything they have done helped her then follow-up with any final recommendations. Encounters Date Type Department Care Team Description 06/03/2024 Telephone Neurosurgery [place] [address] [place] [address] Karen Machado MD from Last 3 Months Surgical History Surgery Date Site/Laterality Comments BREAST LUMPECTOMY PROCEDURE:BREAST LUMPECTOMY FOOT SURGERY PROCEDURE:FOOT SURGERY CHOLECYSTECTOMY PROCEDURE:CHOLECYSTECTOMY HAND SURGERY PROCEDURE:HAND SURGERY POSTERIOR SPINAL FUSION 07/20/2019 - 08/17/2019 Dr. Mckeon SPINE SURGERY 02/18/2020 - 03/18/2020 resection of synovial cyst by Dr. Gonzalez CHOLECYSTECTOMY BREAST LUMPECTOMY 06/19/2010 - 06/18/2011 Medical History Medical History Date Comments Cancer (CMS/HCC) DX:Cancer (HCC) Osteoporosis DX:Osteoporosis Arthritis DX:Arthritis Hyperlipidemia GERD (gastroesophageal reflux disease) Social History Tobacco Use Types Packs/Day Years Used Date Smoking Tobacco: Never Smokeless Tobacco: Never Tobacco Cessation:Counseling Given: Not Answered Comments Unknown Sex and Gender Information Value Date Recorded Sex Assigned at Not on file Legal Sex Female 3:39 PM EST Gender Identity Not on file Sexual Orientation Not on file Obstetrics History Last Filed Vital Signs Vital Sign Reading Time Taken Comments Blood Pressure - - Pulse - - Temperature - - Respiratory Rate - - Oxygen Saturation - - Inhaled Oxygen Concentration - - Weight 59 kg (130 lb) 05/10/2024 10:12 AM EST Height 162.6 cm (5' 4 ) 05/10/2024 10:12 AM EST Body Mass Index 22.31 05/10/2024 10:12 AM EST Plan of Treatment Health Maintenance Due Date Last Done Comments RSV Immunization Patients 60+ Years Old (1 - 1-dose 75+ series) 2021 Cholesterol Screening (Lipid Panel) 04/10/2024 Depression Screening 04/10/2024 Falls Risk Assessment 04/10/2024 Hepatitis C Screening 04/10/2024 Medicare Annual Wellness Visit 04/10/2024 Osteoporosis Screening (Bone Density Screening) 04/10/2024 Social Influencers of Health Screening 04/10/2024 DTaP,Tdap,and Td Vaccines (4 - Td or Tdap) 06/17/2031 06/17/2021, 06/17/2010, 11/18/1999 Pneumococcal Vaccine: 50+ Years Completed 03/14/2019, 01/15/2015, 05/08/2013 Zoster Vaccines Completed 04/17/2021, 12/18, 12/16/2008 COVID-19 Vaccine Completed 03/26/2024, 08/2022, 04/29/2022, Additional history exists Influenza Vaccine Completed 03/26/2024, , 03/23/2022, Additional history exists HIB Vaccines Aged Out No longer eligi ble based on patient's age to complete this topic HPV Vaccines Aged Out No longer eligi ble based on patient's age to complete this topic Hepatitis A Vaccines Aged Out No long er eligible based on patient's age to complete this topic Hepatitis B Vaccines Aged Out No long er eligible based on patient's age to complete this topic IPV Vaccines Aged Out No longer eligi ble based on patient's age to complete this topic MMR Vaccines Aged Out No longer eligi ble based on patient's age to complete this topic Meningococcal ACWY Vaccine Aged Out N o longer eligible based on patient's age to complete this topic Meningococcal B Vacine Aged Out No lo nger eligible based on patient's age to complete this topic RSV Immunization Patients Under 20 months Aged Out No longer eligible based on patient's age to complete this topic Varicella Vaccines Aged Out No longer eligible based on patient's age to complete this topic Insurance [employer] [place] [id number] Care Teams Software Support Technician Relationship Specialty Start Date End Date Amaya Quigley MD [address] [place] [id number] PCP - General Internal Medicine 07/10/19
--- OUTSIDE RECORDS SUMMARY | 2024-08-30 14:00 | XMS_ITS | Patient Health Record ---
Author Organization [facility] Address [address] [place] [address] Care Team Providers Care Maternity Floor Supervisor Name Role Phone Savannah Quigley MD Primary Care Provider Edmond solorzano Marilyn Dickson Unavailable [phone] Allergies No Known Allergies Reason For Referral [...] Problem Acquired hammer toe of right foot ([id number]) Other hammer toe(s) (acquired), right foot (M20.41) Active confirmed Problem Localized, primary osteoarthritis of the ankle and/or foot (173321730) Primary osteoarthriti s, right ankle and foot (M19.071) Active confirmed Problem [id number] Arthritis of left ankle (M19.072) Active confirmed Plan Of Treatment Pending Test Test Name Order Date X ray : Foot, left 2V 03/15/2016 X ray : Foot, right 3V 04/19/2019 [id number], [id number] INJECT or DRAIN, JOINT/BUR SA 09/10/2021 Insurance Providers Payer Name Payer Address Payer Phone Subscriber Number Group Number Insured Name Patient Relationship to Insured Coverage Start Date Coverage End Date [employer] [place] [employer]age One [facility] [address] [place] [address] [id number] Laura Montesinos Self - patient is the [...]
--- OUTSIDE RECORDS SUMMARY | 2024-08-30 14:00 | XMS_ITS | Clinical Summary ---
Author Organization [facility] Address [address] [id number] Care Team Providers Care Material Combiner Name Role Phone Savannah Quigley MD Primary Care Provider Allergies No known active allergies Medications Medication Sig Dispensed Refills Start Date End Date Status lamoTRIgine (LaMICtal) 100 MG tablet 0 06/07/2019 Active meloxicam (MOBIC) 15 MG tablet TK 1 T PO QD PRN 0 06/07/2019 Active omeprazole (PriLOSEC) 20 MG capsule TK 1 C PO QD 0 05/07/2019 Active OXcarbazepine (TRILEPTAL) 300 MG tablet 0 06/21/2019 Active pregabalin (LYRICA) 75 MG capsule TK ONE C PO BID 0 06/20/2019 Active venlafaxine (EFFEXOR-XR) 75 MG 24 hr capsule 0 05/03/2019 Activ e Active Problems Problem Noted Date Diagnosed Date Greater trochanteric bursitis of left hip 2019 Lumbar back pain with radicu lopathy affecting left lower extremity 07/12/2019 DDD (degenerative disc disease), lumbar 07/12/19 20 Spinal stenosis of lumbar re gion without neurogenic claudication 07/12/2019 Social History Tobacco Use Types Packs/Day Years Used Date Smoking Tobacco: Never Assessed Sex and Gender Information Value Date Recorded Sex Assigned at Not on file Gender Identity Not on file Sexual Orientation Not on file Last Filed Vital Signs Vital Sign Reading Time Taken Comments Blood Pressure - - Pulse - - Temperature - - Respiratory Rate - - Oxygen Saturation - - Inhaled Oxygen Concentration - - Weight 61.2 kg (135 lb) 07/12/2019 2:03 PM EST Height 165.1 cm (5' 5 ) 07/12/2019 2:03 PM EST Body Mass Index 22.47 07/12/2019 2:03 PM EST Plan of Treatment Health Maintenance Due Date Last Done Comments Hepatitis C Screening 1945 COVID-19 Vaccine (#1) 1946 Depression Screening 1958 Preventative Health Evaluation 1964 DTap / Tdap / Td (1 - Tdap) 1965 Shingrix-Zoster Vaccine (1 of 2) 1996 Fall Risk Assessment 2011 Osteoporosis Screening (DEXA Scan) 2011 Pneumococcal Vaccine (1 of 1 - PCV) 2011 RSV Adult > 60+ Yrs or Pregn ant (1 - 1-dose 75+ series) 2021 Influenza Vaccine (#1) 2024 Hepatitis B Vaccines Aged Out No long er eligible based on patient's age to complete this topic RSV Ped < 20 months Aged Out No longe r eligible based on patient's age to complete this topic Care Teams Material Combiner Relationship Specialty Start Date End Date Savannah Quigley MD [address] [place] [address] PCP - General Internal Medicine 07/10/19
--- OUTSIDE RECORDS SUMMARY | 2024-08-30 14:01 | XMS_ITS | Data Portability ---
Author Organization [facility], [facility] Address [address] [place] [address] Care Team Providers Care Pool Lifeguard Name Role Phone DENILSON GAGNON Primary Care Provider Assessment Encounter Date Assessment Date Assessment LastModified by Organization Details LastModified Time 01/03/2024 01/03/2024 I reviewed my findings the patient today. It appears she does have some evidence of mild tibiotalar arthritic change about both ankles, as well as right greater than left symptomatic hammertoes, in particular of the third and fourth digits of the right foot. I recommended bilateral ankle cortisone injections to help improve her pain and she was to proceed with this. I also recommended a double budin splint for her flexible fully correctable hammertoes of the third and fourth lesser toes of the right foot. will follow-up in 3 months time for recheck, sooner if required [email or web address] Not available 01/03/2024 14:01:21 01/25/2024 01/25/2024 I am seeing the patient today under the supervision of Dr. Thomas who was available but who did not see the patient. HPI: Patient is a 78 year old female presenting today for evaluation of right knee pain. Saw my colleague almost 2 months ago after a hyperextension injury while walking. Diagnosed with an arthritic flareup and provided with a cortisone injection. This provided only mild relief. Continues to have pain over the medial aspect of her knee radiating down distally. States that it is at its worst to the touch at night when her knees touch together in bed. Does not necessarily bother her with more prolonged weightbearing activities. Past family, medical, social history and review of systems has been reviewed, updated and is located in the patient? s chart. Examination: The patient is well appearing and in no apparent distress. Alert and oriented x3. Gait is Antalgic favoring the right side. right knee reveals no evidence of any edema, erythema, or warmth. No visible Deformity. Range of motion of the knee full with mild discomfort at the end ranges. No effusion. Does have some tenderness to palpation about the medial hemijoint line extending distally into the pes anserine bursa. Patellofemoral crepitus is noted. No ligamentous laxity. Negative Gm? s . Calf is supple and nontender. Neurovascularly intact distally. X-rays reviewed at [facility]. 3 views of the right knee today showed narrowing of the medial compartment of the knee. With slight osteophyte formation. Narrowing is noted of patellofemoral joint as well. There is a cyst deep to the tibial tubercle that was previously noted on x-ray. Impression: Pes bursitis and underlying osteoarthritis, right knee Plan:I explained the nature of the diagnosis with the patient and its treatment options both conservative and surgical. Conservative measures were discussed at length including but not limited to physical therapy, bracing, anti-inflammatorie s and injection therapies. Patient would like to try a pes bursa injection. We also discussed the role of physical therapy and I offered to provide a prescription for this today, the patient declined and a home exercise program was given instead. Please see procedure documentation for further information about the injection performed today. Will follow up as needed for further evaluation. If the patient were no better in approximately 2 weeks I recommended obtaining an MRI to rule out a medial meniscus tear or further intra-articular pathology. The patient understands and agrees with the plan. They know to call if they have any further questions or concerns regarding their symptoms, or to follow up sooner if needed. Not available 01/25/2024 14:21:56 Plan of Treatment Reminders Order Date Submit Date Provider Last Modified By Organization Details Last Modified Time Details Appointments None recorded. Lab None recorded. Referral None recorded. Procedures None recorded. Surgeries None recorded. Imaging XR, knee, 4 or more view - rm 111 r knee 4v 2024 025 [email or web address], [address], [facility] [address], [place], [address], 5 11:52:26 XR, foot, 3 or more view - rm 302 3v right foot 2023 024 [facility], [address], [place], [address], 4 10:15:45 XR, foot, 3 or more view - rm 302 3v bilateral AP and mortis view 2023 024 [facility], [address], [address], [place], [address], 4 10:15:45 Medication Orders None recorded. Patient TargetsNo targets recorded. Patient InstructionsNo instructions recorded. Reason for Referral None Reported. Results Created Date Observation Date Name Description Value Unit Range Abnormal Flag Note LastModifiedBy Organization Detail LastModifiedTime 01/03/20 24 01/03/2024 XR, foot, 3 or more view [email or web address] ?Encry pted=s hAaTro YD8dLq bEUv6g %2BXZw aYqtaq 0bqfl% 2Fg9IQ a4ajBk vP9nXo QUaueC m3YtLR FvZlgJ JJ8mAn HZtai3 9w5554 AC0Kpb XWFU6T eUC8mr 84%3D INTERFACE [facility] [address] [place] [address], [place], [address], 01/03/2024 13:20:09 01/03/20 24 01/03/2024 XR, foot, 3 or more view [email or web address] ?Encry pted=s hAaTro YD8dLq bEUv6g %2BXZw aYqtaq 0bqfl% 2Fg9IQ a4ajBk vP9nXo QUaueC m3YtLR FvZl JJ8mAn HZtai3 2z1711 AC0Kpb XWFU6T eUC8mr 84%3D INTERFACE [facility] [address], [place], [address], 01/03/2024 13:20:11 01/03/20 24 01/03/2024 XR, foot, 3 or more view [email or web address] ?Encry pted=s hAaTro YD8dLq bEUv6g %2BXZw aYqtaq 0bqfl% 2Fg9IQ a4ajBk vP9nXo QUaueC m3YtLR FvZlgJ JJ8mAn HZtai3 5n3280 AC0Kpb XWHUKf eUC8mr 84%3D INTERFACE [facility] [address], [place], [address], 01/03/2024 13:36:19 01/03/20 24 01/03/2024 XR, foot, 3 or more view [email or web address] ?Encry pted=s hAaTro YD8dLq bEUv6g %2BXZw aYqtaq 0bqfl% 2Fg9IQ a4ajBk vP9nXo QUaueC m3YtLR FvZlgJ JJ8mAn HZtai3 0o8471 AC0Kpb XWHUKf eUC8mr 84%3D INTERFACE [facility] [address], [place], [address], 01/03/2024 13:36:21 02/17/20 24 10/18/2020 imagi ng/di agnos tic resul t No observ ation record ed. [email or web address] Not Available 01/19 08:27:04 02/17/20 24 09/17/2020 imagi ng/di agnos tic resul t No observ ation record ed. [email or web address] Not Available 01/19 08:27:07 02/17/20 24 09/17/2020 imagi ng/di agnos tic resul t No observ ation record ed. [email or web address] Not Available 01/19 08:27:09 02/17/20 24 04/08/2019 imagi ng/di agnos tic resul t No observ ation record ed. [email or web address] Not Available 01/19 08:27:15 02/17/20 24 09/23/2018 imagi ng/di agnos tic resul t No observ ation record ed. [email or web address] Not Available 01/19 08:27:17 02/17/20 24 06/26/2019 imagi ng/di agnos tic resul t No observ ation record ed. [email or web address] Not Available 01/19 08:27:38 02/17/20 24 05/31/2019 imagi ng/di agnos tic resul t No observ ation record ed. [email or web address] Not Available 01/19 08:27:42 02/17/20 24 10/09/2019 imagi ng/di agnos tic resul t No observ ation record ed. [email or web address] Not Available 01/19 08:27:46 02/17/20 24 08/01/2019 imagi ng/di agnos tic resul t No observ ation record ed. [email or web address] Not Available 01/19 08:27:54 02/17/20 24 08/01/2019 imagi ng/di agnos tic resul t No observ ation record ed. [email or web address] Not Available 01/19 08:27:55 02/17/20 24 06/17/2021 imagi ng/di agnos tic resul t No observ ation record ed. [email or web address] Not Available 01/19 08:28:07 07/26/19 25 07/26/2024 XR, knee, 4 or more view [email or web address] ?Encry pted=s hAaTro YD8dLq bEUv6g %2BXZw aYqtaq 0bqfl% 2Fg9IQ a4ajBk vP9nXo QUaueC m3YtLR FvZlgJ JJ8mAn HZtai3 5d2140 AC0Kqb HuFWaG hKiQtr [facility] INTERFACE [facility] [address], [place], [address], 07/26/2024 14:39:42 07/26/19 25 07/26/2024 XR, knee, 4 or more view [email or web address] ?Encry pted=s hAaTro YD8dLq bEUv6g %2BXZw aYqtaq 0bqfl% 2Fg9IQ a4ajBk vP9nXo QUaueC m3YtLR FvZlgJ JJ8mAn HZtai3 5t9589 AC0Kqb HuFWaG hKiQtr MwF INTERFACE [facility] [address], [place], [address], 07/26/2024 14:39:44 Result Notes None recorded. Problems Name Problem SNOMED Code Status Onset Date Resolution Date Notes Provider Name and Address Organization Details Recorded Time Pain in both feet 27144031325910 102 Active 2023 Titi Merino PA-C [address], [place], [address], [facility] 4 08:56:46 Acquired hammer toe of right foot 47610859315423 05 Active 2023 Titi Merino PA-C [address], [place], [address], [facility] 4 13:59:23 Acquired hammer toe of left foot 39730157676687 03 Active 2023 Titi Merino PA-C [address], [place], [address], [facility] 4 13:59:31 Bilateral arthritis of ankle 71456843720795 05 Active 2023 Titi Merino PA-C [address], [place], [address], [facility] 4 13:59:45 Problem Notes None recorded. Procedures Surgical History Date Name Laterality Status Provider Name and Address Organization Details Recorded Time 5 Tendon Sheath Kenalog Injection, L/R completed Mahi Guy, FRANKLIN [address] [facility] [place], [place], [address], [facility] 07/26/2024 14:58:53 4 Sports Knee 4&1 completed Austin Dominguez PA-C [address] [facility] [place], [place], [address], [facility] 01/25/2024 14:12:13 4 Ankle Joint Asp & Inj, Bilateral Celestone 2cc completed Titi Merino PA-C [address] [facility] [place], [place], [address], [facility] 01/03/2024 14:00:14 4 Knee Kenalog 40mg 2cc Injection, L/R completed Antony Cain PA-C [address] [facility] [place], [place], [address], [facility] 12/06/2023 13:41:53 Imaging Results Imaging Date Name Status LastModified by Organiz ation Details LastModified Time 01/03/2024 XR, foot, 3 or more view completed INTERFACE [facility] [address] [place] [facility] [place], [place], [address], 01/03/2024 13:20:09 01/03/2024 XR, foot, 3 or more view completed INTERFACE [facility] [address], [place], [address], 01/03/2024 13:20:11 01/03/2024 XR, foot, 3 or more view completed INTERFACE [facility] [address], [place], [address], 01/03/2024 13:36:19 01/03/2024 XR, foot, 3 or more view completed INTERFACE [facility] [address], [place], [address], 01/03/2024 13:36:21 10/18/2020 imaging/diag nostic result completed Information not available 02/17/2024 08:27:04 09/17/2020 imaging/diag nostic result completed Information not available 02/17/2024 08:27:07 09/17/2020 imaging/diag nostic result completed Information not available 02/17/2024 08:27:09 04/08/2019 imaging/diag nostic result completed Information not available 02/17/2024 08:27:15 09/23/2018 imaging/diag nostic result completed Information not available 02/17/2024 08:27:17 06/26/2019 imaging/diag nostic result completed Information not available 02/17/2024 08:27:38 05/31/2019 imaging/diag nostic result completed Information not available 02/17/2024 08:27:42 10/09/2019 imaging/diag nostic result completed Information not available 02/17/2024 08:27:46 08/01/2019 imaging/diag nostic result completed Information not available 02/17/2024 08:27:54 08/01/2019 imaging/diag nostic result completed Information not available 02/17/2024 08:27:55 06/17/2021 imaging/diag nostic result completed Information not available 02/17/2024 08:28:07 07/26/2024 XR, knee, 4 or more view completed INTERFACE [facility] [address], [place], [address], 07/26/2024 14:39:42 07/26/2024 XR, knee, 4 or more view completed INTERFACE [facility] [address], [place], [address], 07/26/2024 14:39:44 Procedure Notes None recorded. Medical Equipment None Reported. Allergies No known drug allergies Medications Name Sig Start Date Stop Date Status Note LastModified by Organization Details LastModified Time atorvastati n 40 mg tablet TAKE 1 TABLET BY MOUTH DAILY 07/26 completed Not Available Not Available Not Available lamotrigine 150 mg tablet TAKE 1 TABLET BY MOUTH AT BEDTIME 01/24 completed Not Available Not Available Not Available venlafaxine ER 75 mg capsule,ext ended release 24 hr active Not Available Not Available Not Available atorvastati n 20 mg tablet TAKE 1 TABLET BY MOUTH DAILY active Not Available Not Available No t Available tizanidine 2 mg tablet TAKE 1 TABLET BY MOUTH EVERY 8 HOURS NEEDED FOR MUSCLE SPASM CAUTION SEDATING 01/24 completed Not Available Not Available Not Available atorvastati n 10 mg tablet TAKE 1 TABLET BY MOUTH DAILY 07/26 completed Not Available Not Available Not Available azithromyci n 250 mg tablet TAKE 2 TABLETS BY MOUTH ON THE FIRST DAY THEN TAKE 1 TABLET BY MOUTH EVERY DAY 01/24 completed Not Available Not Available Not Available meloxicam 15 mg tablet TAKE 1 TABLET BY MOUTH DAILY NEEDED FOR ARTHRITIS OR FLARE 01/02 completed Not Available Not Available Not Available oxcarbazepi ne 300 mg tablet active Not Available Not Available Not Available tramadol 50 mg tablet TAKE 1 TABLET BY MOUTH DAILY AT BEDTIME NEEDED FOR MODERATE PAIN SEDATING. DO NOT MIX WITH ALCOHOL 01/24 completed Not Available Not Available Not Available pseudoephed rine-guaife nesin ER 80-700 mg tablet,exte nded release 1-2 q4-6 hrs prn pain 01/24 completed Statu s: 'Curr ent'; Not Available Not Available Not Available omeprazole 20 mg capsule,del ayed release active Not Available Not Available Not Available albuterol sulfate HFA 90 mcg/actuati on aerosol inhaler INHALE 2 PUFFS BY MOUTH EVERY 4 HOURS NEEDED FOR WHEEZING OR SHORTNESS OF BREATH 01/24 completed Not Available Not Available Not Available morphine 15 mg immediate release tablet TAKE 1 TABLET BY MOUTH EVERY 4 HOURS FOR 5 DAYS NEEDED FOR PAIN 07/26 completed Not Available Not Available Not Available lamotrigine 100 mg tablet TAKE 1 TABLET BY MOUTH DAILY active Not Available Not Available No t Available oxycodone 5 mg tablet TAKE 1/2 TO 1 TABLET BY MOUTH DAILY AT NIGHT FOR CHRONIC BACK PAIN active Not Available Not Available No t Available modafinil 100 mg tablet Take 2 tablets every day by oral route. active Not Available Not Available No t Available lithium carbonate Hepzibah Carbonate 150MG Capsule 07/26 completed Statu s: 'Curr ent'; Not Available Not Available Not Available Effexor Effexor 75MG Tablet once a day 2002 active Statu s: 'Curr ent'; Not Available Not Available Not Available Arimidex Arimidex 1MG Tablet 01/24 completed Statu s: 'Curr ent'; Not Available Not Available Not Available Prempro Prempro 0.3-1.5MG Tablet 02/22 completed Statu s: 'Disc ontin ued'; Not Available Not Available Not Available pregabalin Pregabali n 100MG Capsule 02/01 completed Statu s: 'Disc ontin ued'; Not Available Not Available Not Available Vitals Date Recorded Body height Body mass index (BMI) Body weight Provider Name and Address Organization Details Last Updated DateTime 12/06/2023 162.56 cm 23.2 kg/m2 33575.97 g Louis Navas [facility] 12/06/2023 13:06:51 Date Recorded Body height Body mass index (BMI) Body weight Provider Name and Address Organization Details Last Updated DateTime 01/03/2024 162.56 cm 23.2 kg/m2 30985.97 g Shashi Sharpe [facility] 01/03/2024 13:12:00 Date Recorded Body height Body mass index (BMI) Body weight Provider Name and Address Organization Details Last Updated DateTime 01/25/2024 162.56 cm 23.2 kg/m2 73585.97 g MARSHA REZA [facility] 01/25/2024 13:53:11 Date Recorded Body height Body mass index (BMI) Body weight Provider Name and Address Organization Details Last Updated DateTime 07/26/2024 162.56 cm 22.3 kg/m2 71250.01 g TINA LUZ [facility] 07/26/2024 14:20:39 Social History Question Answer Notes LastModified by Organizat ion Details LastModified Time Tobacco Smoking Status Never Smoker MARSHA marquez [place] [facility] 01/25/2024 13:56:39 What Is Your Level Of Alcohol Consumption? None Information not available 01/25/2024 What Is Your Relationship Status? Information not available 01/25/2024 Do You Use Any Illicit Or Recreational Drugs? No Information not available 01/25/2024 Do You Or Have You Ever Used Any Other Forms Of Tobacco Or Nicotine? No Information not available 01/25/2024 Sex: Unknown Functional Status None recorded. Mental Status None recorded. Family History Nothing Reported. Medical History Condition Response Allergies/Hayfever N Coronary Artery Disease N Anxiety/Depression N Breathing or lung disorders N Emphysema N Nerve Disorders N Thyroid Problems N COPD N Pacemaker N Anemia N Kidney/Bladder Problems N Vascular Disease N Heart Trouble N Heart Attack (ID) N Gastrointestinal Disease N Cholesterol Y Diabetes N Autoimmune disease N Bleeding Disorder N Orthotics N Arthritis N Seizures/Epilepsy N Blood Clot N AIDS/HIV N Congestive Heart Failure (CHF) N Acid Reflux (GERD) N Cancer Y Stroke N Asthma N Circulation Problems N Peripheral Vascular Disease N Sleep Apnea N Hepatitis N Heart Disease N Rheumatoid Arthritis N Arrhythmia N Pulmonary Embolism N Headaches N Fibromyalgia N Hypertension N Osteoporosis N Gynecological HistoryNo gynecological history recorded. Obstetrics History GPAL:G 0 P 0 0 0 0 Past Encounters Encounter ID Performer Location Encounter Start Date Encounter Closed Date Diagnosis/Indication Diagnosis SNOMED-CT Code Diagnosis ICD10 Code Diagnosis Note [id number] [facility] [address] [place] [address] 12/06/2023 12:47:18 12/06/2023 14:20:28 Osteoarthritis of right knee joint 8732873201 69132 M17.11 [id number] [facility] Choe [address] [place] [address] 01/03/2024 13:01:15 01/31/2024 10:15:44 Pain in both feet 8663499236 8187536 M79.671 M79.672 Acquired h ammer toe of right foot 8759681618 533032 M20.41 Acquired h ammer toe of left foot 5268697419 416079 M20.42 Bilateral arthritis of ankle 7810642669 874627 M13.871 M13.752 [id number] Austin Dominguez PA-C [facility] [address] [place] [address] 01/25/2024 13:47:06 02/21/2024 10:26:39 Osteoarthritis of right knee joint 1861561305 95846 M17.11 Pes anseri nus bursitis of right knee 7758710167 477144 M70.51 [id number] Mahi Brooks, [facility] [address] [place] [address] 07/26/2024 14:09:02 08/07/2024 12:46:52 Pain of knee region 1534927175 M25.561 Health Concerns Section Related Observation LastModified by Organization Detai ls LastModified Time None Recorded Concern Status LastModified by Organization Details LastModified Time None Recorded Advance Directives Directive None Recorded Payers Encounter Date Sequence Insurance Name Policy Number Policy Puga Covered Member ID Puga Member ID Guarantor Name 12/06/2023 1 [employer]AGE PLAN (MEDICARE REPLACEMENT HMO) [id number] 1 Laura E E Dimella [id number] Laura E Dimella 01/03/2024 1 [employer]AGE PLAN (MEDICARE REPLACEMENT HMO) [id number] Laura E E Dimella [id number] Laura E Dimella 01/25/2024 1 [employer]AN (MEDICARE REPLACEMENT HMO) [id number] Laura E E Dimella [id number] Laura E Dimella 07/26/2024 1 [employer]AN (MEDICARE REPLACEMENT HMO) [id number] 1 Laura E E Dimella [id number] Laura E Dimella Notes Date Note Type Note Provider Name and Address Organization Details Recorded Time 12/06/2023 text/html I am seeing the patient today under the supervision of Dr. Thomas who was available but who did not see the patient.HPI:The patient is a 78-year-old female comes in the office complaints of discomfort about her right knee. Couple weeks ago she was walking and developed significant pain with hyperextension injury of the right knee. She is an active individual and walks daily. However, since this injury she has not walked significantly. She has more pain at night. She denies giving out or locking episodes of the right knee. She has a history of an ACL repair done many years ago by Dr. Patel. She was seen in urgent care today.Past family, medical, social history and review of systems has been reviewed, updated and is located in the patient? s chart.Examination:T he patient is well appearing and in no apparent distress. Alert and oriented x3. Gait is symmetric. No significant swelling, warmth, erythema the right knee. She has a well-healed incision laterally. Range of motion is full extension flexion to 20? ? ? with only mild discomfort. Good strength and stability with right knee. There is some mild tenderness of the medial and lateral joint line. Peripheral, vascular, lymphatic examination, skin, neurological, coordination, reflexes, sensation are within normal limits.X-rays ordered, obtained and reviewed at [facility] 3 views of the right knee reviewed demonstrate mild medial, lateral, and patellofemoral arthritic change noted.Impression:Rig ht knee arthritis.Plan:I reviewed the x-rays and diagnosed with the patient. We discussed conservative measure for this problem. Activity modification discussed. P.r.n. NSAIDs can be used. We discussed the risks associated with NSAID use. We discussed home exercise program. We discussed her walking exercise and program. We discussed injection therapies. I injected 80 mg of Kenalog and 8 cc cortisone Marcaine into the right knee under sterile conditions. Patient tolerated the injection well. All questions answered to her satisfaction today. Antony Cain PA-C [address] [facility] [address], [place], [address], [facility] 12/06/2023 13:42:23 01/03/2024 text/html I am seeing this patient under the supervision of Dr. Barfield who was available but who did not see the patient Chief Complaint: New evaluation for bilateral foot and ankle pain HPI: 78-year-old female presents today for evaluation of bilateral foot and ankle pain. Patient reports a history many years ago of multiple sprains laterally about both ankles, right worse than left. She notes a sense of some degree of instability and had physical therapy previously. She does note some achiness at nighttime along the anterior surface of both ankles. She also reports longstanding history of hammertoes right side worse than left. She notes that Dr. Fuentes had performed a hammertoe correction of the right second lesser toe but had continued deformity afterwards, about 7 to 8 years ago. She has tried shoewear modification, foam pads and lidocaine cream without significant improvements. She describes most of her pain to be at the tips of the third and fourth lesser toes on the right side. Titi Merino PA-C [address], [place], [address], [facility] 01/03/2024 14:02:09 07/26/2024 text/html Delmi is a 79-year-old who is here today for follow-up of her right knee. She has been seen by 2 of my colleagues for knee pain found to have arthritis and pes tendinitis. She had a cortisone injection for her arthritis which gave limited relief did have a cortisone injection for her pes bursitis as well. Years ago she had ACL repair with Dr. Patel and what she describes as a patellar realignment. She is here today for further evaluation. Mahi Guy, [facility] [address], [place], [address], [facility] 07/26/2024 14:59:12 OBGyn Episode No OBEpisode recorded.
== END 2024-08-30 13:23 | disposition home or self-care (01) ==
LOC: HO.HOP 12:27
PROVIDERS: PCP Internal Medicine; Visit Provider Psychiatry & Neurology Psychiatry
DX: F31.32 Bipolar disorder, current episode depressed, moderate (principal); M54.9 Dorsalgia, unspecified; G89.29 Other chronic pain; M79.7 Fibromyalgia; M19.90 Unspecified osteoarthritis, unspecified site
CPT/HCPCS: 90833; 99213

== ENCOUNTER → 2024-08-30 12:27 | Outpatient (BNVA) | payer MEDICARE, SELFPAY | PROVIDERS: PCP Internal Medicine; Visit Provider Psychiatry & Neurology Psychiatry | DX: M54.9 Dorsalgia, unspecified (principal); G89.29 Other chronic pain; F31.32 Bipolar disorder, current episode depressed, moderate; M79.7 Fibromyalgia; M19.90 Unspecified osteoarthritis, unspecified site; Z71.89 Other specified counseling | CPT/HCPCS: 99212 ==

== ENCOUNTER 2024-10-31 13:21 | Outpatient (AMB) | payer MEDICARE, SELFPAY ==
--- NOTE | 2024-10-31 13:30 | A.SPINEOV_ITS ---
Intake Visit Reasons: discuss sx Intake Note: Ms. Montesinos is here today to discuss surgery. Electric Motor Winder Required: No Allergies No Known Allergies Allergy (Verified 10/31/24 13:31) Assessment & Plan Assessment & Plan (1) Synovial cyst of lumbar spine: Code(s): M71.38 - Other bursal cyst, other site Category: Medical Plan Mrs Montesinos is here in follow-up. We have had extensive discussions in the past about the pain that she has in the right side of her lower back just lateral to her incision in her lumbar region that was done for lumbar fusion and subsequent resection of synovial cyst on the right side at L5-S1. Despite the 2 surgeries, she has had this persistent pain ever since the original fusion operation. It has taken over her life for the most part 2 where she can not really do anything other than sit around because when she attempts to stand and walk it gets aggravated. She has been through copious amounts of cortisone injections that have never brought her any meaningful relief. Repeat MRI imaging has shown that there still assist at L5-S1 and the working theory that we had been going with his that there is a ongoing instability in the joint which is cause the cyst to continue to come back and Dr. Oconnor believes that she would be a good can didate to do a facetectomy on the right at L5-S1 with pedicle screw fixation. We would obviously have to remove the old hardware on the right side at the same time. Right now, the patient is not sure what to do. In her heart, she does not think that it is the cyst, so she just not want to proceed with surgery. I think this is reasonable given that we can not give her high probability for success, we generally quote around 60-70% for back pain with this kind of situation. For now, she is just going to live with it and try her best to carry on with life. She will call us if she wants to be seen again. Total amount of time spent in this visit was 20 minutes in discussion of symptoms, lumbar imaging results and subsequent plan of care Papi Oconnor MD,PhD [facility] Coding Level of Care Code Est Pt Level 3 (95991) Diagnoses Synovial cyst of lumbar spine M71.38
--- OUTSIDE RECORDS SUMMARY | 2024-10-31 13:58 | XMS_ITS | Patient Health Record ---
Author Organization [facility] Address [address] [place] [address] Care Team Providers Care Disc Sander Name Role Phone Savannah Quigley MD Primary Care Provider Edmond solorzano Marilyn Dickson Unavailable [phone] Allergies No Known Allergies Reason For Referral [...] Problem Acquired hammer toe of right foot (8999554250666112) Other hammer toe(s) (acquired), right foot (M20.41) Active confirmed Problem Localized, primary osteoarthritis of the ankle and/or foot (101799427) Primary osteoarthriti s, right ankle and foot (M19.071) Active confirmed Problem [id number] 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
--- OUTSIDE RECORDS SUMMARY | 2024-10-31 13:58 | XMS_ITS | Clinical Summary ---
Author Organization [address] [facility] Address [address] [place] [address] Phone Care Team Providers Care Commercial Construction Superintendent Name Role Phone Amaya Quigley MD Primary Care Provider [phone] Allergies No known active allergies Medications lamoTRIgine (LaMICtal) 100 mg tablet Take 1 tablet (100 mg total) by mouth 1 (one) time each day. Active modafiniL (PROVIGIL) 100 mg tablet 0 Refills, Maintenance, 04/11/24 14:13:00 EDT, Partial fill upon patient request if the prescription is for a schedule II opioid drug. 04/11/20 24 Active TrileptaL 300 mg tablet Take 1 tablet (300 mg total) by mouth. 01/16/20 15 Active oxyCODONE (ROXICODONE) 5 mg immediate release tablet TAKE 1/2 TO 1 TABLET BY MOUTH DAILY AT NIGHT FOR CHRONIC BACK PAIN 05/06/20 24 Active venlafaxine XR (EFFEXOR-XR) 75 mg 24 hr capsule 09/16/19 17 Active esomeprazole (NexIUM) [address] capsule 08/31/19 25 Active traMADoL (ULTRAM) 50 mg tablet Active OXcarbazepine (TRILEPTAL) 300 mg tablet Take 1 tablet (300 mg total) by mouth 2 (two) times a day. Active albuterol HFA (PROAIR HFA ; PROVENTIL HFA ; VENTOLIN HFA) 90 mcg/actuation inhaler INHALE 2 PUFFS BY MOUTH EVERY 6 HOURS NEEDED FOR WHEEZING / SHORTNESS OF BREATH 12/04/19 24 025 Discontinued atorvastatin (LIPITOR) 40 mg tablet Take 1 tablet (40 mg total) by mouth 1 (one) time each day. 05/03/20 24 025 Discontinued omeprazole (PriLOSEC) [address] capsule TK 1 C PO QD 05/07/20 19 025 Discontinued Active Problems Problem Noted Date Diagnosed Date Chronic right-sided low back pain without sciati ca 05/10/2024 Assessment & Plan (10/22/2024 3:53 PM EDT): I reviewed the options with Ms. Montesinos regarding her persistent right sided pain which we are presuming is her SI joint. She has not responded to SI joint or facet injections in the past. We discussed that Dr. Gonzalez offered to resect a small right synovial cyst at L5-S1 which would necessitate fusing that joint. I do not believe that that is the location of her pain there and her symptoms do not radiate down her leg so I do not believe there would be any benefit to that procedure. We discussed radiofrequency ablation as this was something she looked up online. This is not a procedure that I offer but recommended she discuss it with Dr. Morales and if this is feasible at her right SI joint. Assessment & Plan (05/10/2024 5:12 PM EST): [...] Encounters Date Type Department Care Team Description 10/22/2024 3:00 PM EDT Office Visit Neurosurgery [facility] [address] [place] [address] Karen Machado MD Chronic right-sided low back pain without sciatica (Primary Dx) from Last 3 Months Surgical History Surgery Date Site/Laterality Comments BREAST LUMPECTOMY PROCEDURE:BREAST LUMPECTOMY FOOT SURGERY PROCEDURE:FOOT SURGERY CHOLECYSTECTOMY PROCEDURE:CHOLECYSTECTOMY HAND SURGERY PROCEDURE:HAND SURGERY POSTERIOR SPINAL FUSION 07/20/2019 - 08/17/2019 Dr. Mckeon SPINE SURGERY 02/18/2020 - 03/18/2020 resection of synovial cyst by Dr. Gonzalez CHOLECYSTECTOMY BREAST LUMPECTOMY 06/19/2010 - 06/18/2011 Medical History Medical History Date Comments Cancer (CMS/HCC V24, CMS/HCC V28) DX:Cancer (HCC) Osteoporosis DX:Osteoporosis Arthritis DX:Arthritis Hyperlipidemia [...] Due Date Last Done Comments RSV Immunization Adult Patients (1 - 1-dose 75+ series) 2021 Cholesterol Screening (Lipid Panel) 04/10/2024 Depression Screening 04/10/2024 Falls Risk Assessment 04/10/2024 Hepatitis C Screening 04/10/2024 Medicare Annual Wellness Visit 04/10/2024 Osteoporosis Screening (Bone Density Screening) 04/10/2024 Social Influencers of Health Screening 04/10/2024 COVID-19 Vaccine (7 - Pfizer risk season) 2024 03/26/2024, 03/21/2023, 04/29/2022, Additional history exists DTaP,Tdap,and Td Vaccines (4 - Td or Tdap) 06/17/2031 06/17/2021, 06/17/2010, 11/18/1999 Pneumococcal Vaccine: 50+ Years Completed 03/14/2019, 01/15/2015, 05/08/2013 Zoster Vaccines Completed 04/17/2021, 12/18, 12/16/2008 Influenza Vaccine Completed 03/26/2024, , 03/23/2022, Additional [...] age to complete this topic Meningococcal B Vaccine Aged Out No l onger eligible based on patient's age to complete this topic RSV Immunization Patients Under 20 months Aged Out No longer eligible based on patient's age to complete this topic Varicella Vaccines Aged Out No longer eligible based on patient's age to complete this topic Insurance [employer] [place] MED[employer] ADVANTAGE ALEJANDRO VALENTINO [id number] Care Teams Commercial Construction Superintendent Relationship Specialty Start Date End Date Amaya Quigley MD [address] [address] PCP - General Internal Medicine 07/10/19
--- OUTSIDE RECORDS SUMMARY | 2024-10-31 13:58 | XMS_ITS | Clinical Summary ---
Author Organization [facility] Address [address] [id number] Care Team Providers Care Icing And Glaze Maker Name Role Phone Savannah Quigley MD Primary Care Provider [phone] Allergies No known active allergies Medications Medication [...] age to complete this topic Care Teams Icing And Glaze Maker Relationship Specialty Start Date End Date Savannah Quigley MD [address] [place] [address] PCP - General Internal Medicine 07/10/19
--- OUTSIDE RECORDS SUMMARY | 2024-10-31 13:59 | XMS_ITS | Continuity of Care Document ---
Author Organization [facility] Address [address] [place] [address] Phone Care Team Providers Care Fish And Wildlife Scientific Aid Name Role Phone Nelson GUERRA, RVT, RACHEL, [...] Mins- [place] & [place] L[facility], [address] [place] [address] Dr Lopez 1000SuBk arizmendi [place], [id number], tel:[phone] [facility] Venous insufficiency (chronic) (peripheral) 4 Nelson GUERRA RVT, RACHEL Quiroz. [address] [place] [address], [place], [place], [id number] , [place]. tel:[phone] Referring Provider: Savannah Oseguera, [address] [place] [address], [address]. tel:[phone] [facility], [address] [place] [address] Dr Lopez 1000Bk arizmendi [place], [id number], tel:[phone] [place] Chronic venous hypertension (idiopathic) with other complications of bilateral lower extremity 4 Nelson GUERRA RVT, RACHEL Quiroz. [address] [place] [address], [place], [place], [id number] , [place]. tel:[phone] Referring Provider: Savannah Oseguera, [address] [place] [address] Suite [facility], [place], [address]. tel:[phone] Lashonda Marquez [facility]in [facility], [address] [place] [address] Dr Lopez 1000[facility] Bk Dempsey [place], [id number], tel:[phone] [place] Pain in right leg 3 Jose F Bassett. [address] [place] [address], [place], [address], [place]. tel:[phone] Referring Provider: Savannah Oseguera, [address] [place] [address] Suite [facility], [place], [address]. tel:[phone] Office/Outpt E&M Established 25 Mins [facility], [address] [place] [address] [facility] [address] 1000Bk [place], [id number], [place] tel:[phone] CVR - [place] Venous insufficiency (chronic) (peripheral)Tad n in right lower legPain in left lower leg Nov- 3 Jose F GUERRA FACS T RACHEL Bassett. [address] [place] [address], [place], [address], [place]. tel:[phone] Referring Provider: Savannah Oseguera, [address] [place] [address] Suite [facility], [place], [address]. tel:[phone] Office/Outpt E&M Established 15 Mins [facility], [address] [place] [address] [facility] [address] 1000Bk [place], [id number], [place] tel:[phone] CV[place] - [place] Chronic venous hypertension (idiopathic) with other complications of bilateral lower extremity Oct- 3 Jose F GUERRA FACS T RACHEL Bassett. [address] [place] [address], [place], [address], [place]. tel:[phone] Referring Provider: Savannah Oseguera, [address] [place] [address] Suite [facility], [place], [address]. 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 [address] [address], [place], [place], [id number] , [place]. tel:[phone] Referring Provider: Savannah Osgeuera, [address] [place] [address] Suite [facility], [place], [address]. tel:[phone] [facility], [address] [place] [address] Dr [address] 1000Bk [place], [id number], [place] tel:[phone] [place] Encntr for f/u exam aft trtmt for cond oth than malig neoplmVaricose veins of left lower extremities with pain Sep-0 3 Jose F GUERRA FACS RVT RPVI K Serjio. [address] [facility], [address], [place], [address], [place]. tel:[phone] Referring Provider: Savannah Oseguera, [address] [place] [address] Suite [facility], [place], [address]. 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 [facility], [place] [address], [place], [address], [place]. tel:[phone] Referring Provider: Savannah Oseguera, [address] [place] [address] Suite [facility], [place], [address]. tel:[phone] Lashonda Marquez Vein Jew [facility], [address] [place] [address] [address] 1000Bk [place], [id number], [place] tel:[phone] CV[place] - [place] Encntr for f/u exam aft trtmt for cond oth than malig neoplmVaricose veins of right lower extremities with pain Jan-0 3 Jose F GUERAR FACS RVT RPVI Ana Rosa Bassett. [address] [facility], [address], [place], [address], [place]. tel:[phone] Referring Provider: Savannah Oseguera, [address] [place] [address] Suite [facility], [place], [address]. tel:[phone] Lashonda Marquez Vein Jew MD MAR[place], [address] [place] [address] Dr [address] 1000Bk [place], [id number], [place] tel:[phone] CVR - [place] Varicose veins of right low extrm w oth complications 3 Jonas CATRINA Mitra . [address] [place] [address], [address], [facility] [place], [id number] , [place]. tel:[phone] Referring Provider: Savannah Oseguera, [address] [place] [address] Suite [facility], [place], [address]. tel:[phone] [facility], [address] [place] [address] [address] 1000Bk [place], [id number], [place] tel:[phone] CVR - [place] Varicose veins of right low extrm w oth complications 3 Jose F GUERRA FACS Kanchan Bassett. [address] [place] [address], [address] [place] [address], [place], [address], [place]. tel:[phone] Referring Provider: Savannah Oseguera, [address] [place] [address] Suite [facility], [place], [address]. tel:[phone] Lashonda Marquez Vein Jew [facility], [address] [place] [address] [facility] [address] 1000Bk [place], [id number], [place] tel:[phone] CV[place] - [place] Varicose veins of right low extrm w oth complications 3 Jose F Bassett. [address] [place] [address], Suite [facility], [facility] [place], [address], [place]. tel:[phone] Referring Provider: Savannah Oseguera, [address] [place] [address] [address], [place], [address]. tel:[phone] Office/Outpt E&M Established 15 Mins Lashonda Marquez Vein Jew [facility], [address] [place] [address] [facility] [address] 1000Bk [place], [id number], [place] tel:[phone] CV[place] - [place] Venous insufficiency (chronic) (peripheral) 3 Jose F Bassett. [address] [place] [address], [address], [place], [address], [place]. tel:[phone] Referring Provider: Savannah Oseguera, [address] [place] [address] Suite [facility], [place], [address]. tel:[phone] [facility], [address] [place] [address] 1000[facility] 1000, [place], [id number], tel:[phone] CVR - [facility] No Information 3 Jose F GUERRA FACS T ZEFERINO Bassett. [address] [place] [address] 302, [place], [address], [place]. tel:[phone] Referring Provider: Savannah Oseguera, [address] [place] [address], [place], [address]. tel:[phone] [place] [facility], [address] [place] [address] 1000[facility] 1000, [place], [id number], tel:[phone] CVR - [facility] Venous insufficiency (chronic) (peripheral)Tad n in right legPain in left leg 3 Jose F GUERRA FACS Kanchan Bassett. [address] [place] [address], [place], [address], [place]. tel:[phone] Referring Provider: Savannah Oseguera, [address] [place] [address], [place], [address]. tel:[phone] Family History Family Member Type Diagnosis Age At Onset No Information Payers Payer name Insurance type Covered constitution party ID Radha honey(s) [employer] CI [id number] Social History Type Description Quantity Date Captured [...]
--- OUTSIDE RECORDS SUMMARY | 2024-10-31 13:59 | XMS_ITS | Data Portability ---
Author Organization [facility], [facility] Address [address] [place] [address] Care Team Providers Care Automotive Alignment Specialist Name Role Phone DENILSON GAGNON Primary Care [...] nontender. Neurovascularly intact distally. X-rays reviewed at [facility]. 3 views of the right knee today [...] or to follow up sooner if needed. [email or web address] Not available 01/25/2024 14:21:56 Plan of Treatment Reminders Order Date Submit Date Provider Last Modified By Organization Details Last Modified Time Details Appointments None recorded. Lab None recorded. Referral None recorded. Procedures None recorded. Surgeries None recorded. Imaging XR, knee, 4 or more view - rm 111 r knee 4v 2024 025 [email or web address] [facility], [address], [facility] [address], [place], [address], 5 11:52:26 XR, foot, 3 or more view - rm 302 3v right foot 2023 024 [facility], [address], [place], [address], 4 10:15:45 XR, foot, 3 or more view - rm 302 3v bilateral AP and mortis view 2023 024 [facility], [address], [address], [place], [address], 4 10:15:45 Medication Orders None recorded. Patient [...] a4ajBk vP9nXo QUaueC m3YtLR FvZlgJ JJ8mAn HZtai3 0k0085 AC0Kpb XWFU6T eUC8mr 84%3D INTERFACE [facility] [address] [place] [address], [place], [address], 01/03/2024 13:20:09 01/03/20 24 01/03/2024 XR, foot, 3 or more view [email or web address] ?Encry pted=s hAaTro YD8dLq bEUv6g %2BXZw aYqtaq 0bqfl% 2Fg9IQ a4ajBk vP9nXo QUaueC m3YtLR FvZl JJ8mAn HZtai3 7f2639 AC0Kpb XWFU6T eUC8mr 84%3D INTERFACE [facility] [address], [place], [address], 01/03/2024 13:20:11 01/03/20 24 01/03/2024 XR, foot, 3 or more view [email or web address] ?Encry pted=s hAaTro YD8dLq bEUv6g %2BXZw aYqtaq 0bqfl% 2Fg9IQ a4ajBk vP9nXo QUaueC m3YtLR FvZlgJ JJ8mAn HZtai3 8n8791 AC0Kpb XWHUKf eUC8mr 84%3D INTERFACE [facility] [address], [place], [address], 01/03/2024 13:36:19 01/03/20 24 01/03/2024 XR, foot, 3 or more view [email or web address] ?Encry pted=s hAaTro YD8dLq bEUv6g %2BXZw aYqtaq 0bqfl% 2Fg9IQ a4ajBk vP9nXo QUaueC m3YtLR FvZlgJ JJ8mAn HZtai3 3b7989 AC0Kpb XWHUKf eUC8mr 84%3D INTERFACE [facility] [address], [place], [address], 01/03/2024 13:36:21 02/17/20 24 10/18/2020 imagi ng/di [...] a4ajBk vP9nXo QUaueC m3YtLR FvZlgJ JJ8mAn HZtai3 9l6085 AC0Kqb HuFWaG hKiQtr [facility] INTER[facility] [address], [place], [address], 07/26/2024 14:39:42 07/26/19 25 07/26/2024 XR, knee, 4 or more view [email or web address] ?Encry pted=s hAaTro YD8dLq bEUv6g %2BXZw aYqtaq 0bqfl% 2Fg9IQ a4ajBk vP9nXo QUaueC m3YtLR FvZlgJ JJ8mAn HZtai3 6v7515 AC0Kqb HuFWaG hKiQtr MwF INTERFACE [facility] [address], [place], [address], 07/26/2024 14:39:44 Result Notes None recorded. Problems Name Problem SNOMED Code Status Onset Date Resolution Date Notes Provider Name and Address Organization Details Recorded Time Pain in both feet 80123997720490 102 Active 2023 Titi Merino PA-C [address], [place], [address], [facility] 4 08:56:46 Acquired hammer toe of right foot 15196703279724 05 Active 2023 Titi Merino PA-C [address], [place], [address], [facility] 4 13:59:23 Acquired hammer toe of left foot 18705599046898 03 Active 2023 Titi Merino PA-C [address], [place], [address], [facility] 4 13:59:31 Bilateral arthritis of ankle 34517414747647 05 Active 2023 Titi Merino PA-C [address], [place], [address], [facility] 4 13:59:45 Problem Notes None recorded. Procedures Surgical History Date Name Laterality Status Provider Name and Address Organization Details Recorded Time 5 Tendon Sheath Kenalog Injection, L/R completed Mahi Guy, FRANKLIN [address] [facility], [place], [address], [facility] 07/26/2024 14:58:53 4 Sports Knee 4&1 completed Austin Dominguez PA-C [address] [facility], [place], [address], [facility] 01/25/2024 14:12:13 4 Ankle Joint Asp & Inj, Bilateral Celestone 2cc completed Titi Merino PA-C [address] [facility], [place], [address], [facility] 01/03/2024 14:00:14 4 Knee Kenalog 40mg 2cc Injection, L/R completed Antony Cain PA-C [address] [facility], [place], [address], [facility] 12/06/2023 13:41:53 Imaging Results Imaging Date Name Status LastModified by Organiz ation Details LastModified Time 01/03/2024 XR, foot, 3 or more view completed INTERFACE [facility] [address] [facility], [place], [address], 01/03/2024 13:20:09 01/03/2024 XR, foot, 3 or more view completed INTERFACE [facility] [address], [place], [address], 01/03/2024 13:20:11 01/03/2024 XR, foot, 3 or more view completed INTERFACE [facility] [address], [place], [address], 01/03/2024 13:36:19 01/03/2024 XR, foot, 3 or more view completed INTERFACE [facility] [address], [place], [address], 01/03/2024 13:36:21 10/18/2020 imaging/diag nostic result completed [...] [facility] [address], [place], [address], 07/26/2024 14:39:42 07/26/2024 XR, knee, 4 or more view completed INTERFACE [facility] [address], [place], [address], 07/26/2024 14:39:44 Procedure Notes None recorded. Medical [...] Not Available No t Available lithium carbonate [place] Carbonate 150MG Capsule 07/26 completed Statu s: [...] Updated DateTime 12/06/2023 162.56 cm 23.2 kg/m2 99036.97 g Louis Navas [facility] 12/06/2023 13:06:51 Date Recorded Body height Body mass index (BMI) Body weight Provider Name and Address Organization Details Last Updated DateTime 01/03/2024 162.56 cm 23.2 kg/m2 26860.97 g Shashi Sharpe [facility] 01/03/2024 13:12:00 Date Recorded Body height Body mass index (BMI) Body weight Provider Name and Address Organization Details Last Updated DateTime 01/25/2024 162.56 cm 23.2 kg/m2 77529.97 g MARSHA REZA [facility] 01/25/2024 13:53:11 Date Recorded Body height Body mass index (BMI) Body weight Provider Name and Address Organization Details Last Updated DateTime 07/26/2024 162.56 cm 22.3 kg/m2 07400.01 g TINA LUZ [facility] 07/26/2024 14:20:39 Social History Question Answer Notes LastModified by Organizat ion Details LastModified Time Tobacco Smoking Status Never Smoker MARSHA marquez [place] - [facility] 01/25/2024 13:56:39 What Is Your Relationship Status? jered Information not available 01/25/2024 Sex: Unknown Functional Status Question Answer Note LastModified by Organizat ion Details LastModified Time Do you use any illicit or recreational drugs? No Information not available 01/25/2024 Do you or have you ever used any other forms of tobacco or nicotine? No Information not available 01/25/2024 What is your level of alcohol consumption? None Information not available 01/25/2024 Mental Status None recorded. Family History Nothing Reported. Medical History Condition Response Coronary Artery Disease N Anxiety/Depression N Emphysema N COPD N Pacemaker N Vascular Disease N Heart Trouble N Gastrointestinal Disease N Autoimmune disease N Orthotics N Arthritis N Blood Clot N Acid Reflux (GERD) N Cancer Y Stroke N Circulation Problems N Rheumatoid Arthritis N Arrhythmia N Headaches N Fibromyalgia N Allergies/Hayfever N Breathing or lung disorders N Nerve Disorders N Thyroid Problems N Kidney/Bladder Problems N Anemia N Heart Attack (MS) N Cholesterol Y Diabetes N Bleeding Disorder N Seizures/Epilepsy N AIDS/HIV N Congestive Heart Failure (CHF) N Asthma N Peripheral Vascular Disease N Sleep Apnea N Hepatitis N Heart Disease N Pulmonary Embolism N Hypertension N Osteoporosis N Gynecological HistoryNo gynecological history recorded. Obstetrics History GPAL:G 0 P 0 0 0 0 Past Encounters Encounter ID Performer Location Encounter Start Date Encounter Closed Date Diagnosis/Indication Diagnosis SNOMED-CT Code Diagnosis ICD10 Code Diagnosis Note [id number] KAE Ocampo [address] [place] [address] 12/06/2023 12:47:18 12/06/2023 14:20:28 Osteoarthritis of right knee joint 5751852781 75435 M17.11 [id number] KAE Choe [address] [place] [address] 01/03/2024 13:01:15 01/31/2024 10:15:44 Pain in both feet 4874844764 3984473 M79.671 M79.672 Acquired h ammer toe of right foot 9467449913 593770 M20.41 Acquired h ammer toe of left foot 6297261716 618695 M20.42 Bilateral arthritis of ankle 3350991708 746198 M13.871 M13.974 [id number] Austin Dominguez PA-C [facility] [address] [place] [address] 01/25/2024 13:47:06 02/21/2024 10:26:39 Osteoarthritis of right knee joint 5869731951 47365 M17.11 Pes anseri nus bursitis of right knee 2953129080 626867 M70.51 [id number] Mahi Guy, AUTO TECHNICIAN MECHAN[employer] - [facility] [address] [place] [address] 07/26/2024 14:09:02 08/07/2024 12:46:52 Pain of knee region 1067771114 M25.561 Health Concerns Section Related Observation LastModified by Organization Detai ls LastModified Time None Recorded Concern Status LastModified by Organization Details LastModified Time None Recorded Advance Directives Directive None Recorded Payers Encounter Date Sequence Insurance Name Policy Number Policy Puga Covered Member ID Puga Member ID Guarantor Name 12/06/2023 1 [employer] - MEDICARE ADVANTAGE PLAN (MEDICARE REPLACEMENT HMO) [id number] 1 Laura E E Dimella [id number] Laura E Dimella 01/03/2024 1 [employer] MED[employer] ADVANTAGE PLAN (MEDICARE REPLACEMENT HMO) [id number] 1 Laura E E Dimella [id number] Laura E Dimella 01/25/2024 1 [employer]VANTAGE PLAN (MEDICARE REPLACEMENT HMO) [id number] 1 Laura E E Dimella [id number] Laura E Dimella 07/26/2024 1 [employer] MED[employer] ADVANTAGE PLAN (MEDICARE REPLACEMENT HMO) [id number] 1 Laura E E Dimella [id number] Laura E Dimella Notes Date Note Type [...] normal limits.X-rays ordered, obtained and reviewed at [facility] 3 views of the right knee reviewed [...] to her satisfaction today. Antony Cain PA-C [address] [place] [address] [address], [place], [address], [facility] - [facility] 12/06/2023 13:42:23 01/03/2024 text/html [...] fourth lesser toes on the right side. GALA Choe-C [address], [place], [address], [facility] 01/03/2024 14:02:09 07/26/2024 text/html Delmi is [...] here today for further evaluation. Mahi Guy, AUTO TECHNICIAN MECHANIC [address], [place], [address], [facility] 07/26/2024 14:59:12 OBGyn Episode No OBEpisode recorded.
== END 2024-10-31 14:06 | disposition home or self-care (01) ==
LOC: HO.HNS 13:22
PROVIDERS: PCP Internal Medicine; Visit Provider Physician Assistant
DX: M71.38 Other bursal cyst, other site (principal)
CPT/HCPCS: 99213

== ENCOUNTER → 2024-10-31 13:21 | Outpatient (BNVA) | payer MEDICARE, SELFPAY | PROVIDERS: PCP Internal Medicine; Visit Provider Physician Assistant | DX: M71.38 Other bursal cyst, other site (principal) | CPT/HCPCS: 99212 ==

== ENCOUNTER 2024-12-12 12:23 | Outpatient (AMB) | payer MEDICARE, SELFPAY ==
--- NOTE | 2024-12-12 12:59 | A.OFFPSYCH_ITS ---
Intake Intake Visit Reasons: depression Allergies No Known Allergies Allergy (Verified 10/31/24 13:31) HPI- Psychiatric Chief Complaint: depression HPI Narrative: Patient seen psychiatric follow-up. Patient is somewhat chronically demoralized. Did have spinal consult but was not clear operation be helpful in managing her pain. Patient also has recurrent thoughts and memories of she was manic and drinking in the past. Has been on low-dose Trileptal generally has refused higher dose Effexor and 50 mg modafinil which has not increased any manic symptoms or impulsivity Past Psychiatric History: hx bipolar dx not manic in years has been at [facility] has hx of CFS fibro Mental Status Exam Mental Status Exam Narrative: Mental Status Exam Narrative: Appearance: Casually dressed Behavior cooperative Mood: Okay constricted Affect: Appropriate to mood constricted apathetic SI:denies HI:denies VH/AH:none Delusions: None Insight/judgment: Fair insight at times regarding self-care Memory/cog: Alert does describe some difficulty with attention at times or iented x4 Reports difficulty with motivation and attention but improved since being on modafinil feels this is helpful denies feeling overly stimulated racing thoughts or mood lability discontinues to be true Assessment and Plan Assessment & Plan (1) Bipolar 1 disorder, depressed, moderate: Status: Acute Code(s): F31.32 - Bipolar disorder, current episode depressed, moderate (2) Synovial cyst of lumbar spine: Status: Acute Code(s): M71.38 - Other bursal cyst, other site (3) Fibromyalgia: Status: Acute Code(s): M79.7 - Fibromyalgia (4) Chronic fatigue disorder: Status: Acute Code(s): G93.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 Plan Patient will try Lamictal 150 mg have discussed possibility to increase modafinil to 50 twice a day or 100 Medications: New lamotrigine 150 mg PO DAILY 30 tabs 1RF lamotrigine 150 mg PO DAILY 30 tabs 1RF On Hold lamotrigine Hold Comment: Doctor's Order 100 mg PO DAILY 90 tabs 1RF Counseling and coordination of Care Pt. Self Management counseling: Behavior activation Details-Self Mgmt counseling: Patient will try increase in modafinil Medication management counseling: Effectiveness, Side effects and Dosing range Diagnosis and Prognosis Counseling: Impact of diagnosis on life functions and Adequacy of current interventions Details: I spent [] minutes reviewing the record, seeing the patient and documenting in the medical record. Counseling provided to the patient/caregiver as outlined below. Addressed patient/caregiver concerns regarding current medication regime including effective adherence. Addressed patient/caregiver concerns regarding diagnosis and prognosis including accuracy of diagnosis, prognosis over time, impact of diagnosis. Addressed patient/caregiver concerns regarding impact of recent str essors. 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
--- OUTSIDE RECORDS SUMMARY | 2024-12-12 14:42 | XMS_ITS | Patient Health Record ---
Author [facility] Address [address] [place] [address] Care Team Providers Care Sluice Tender Name Role Phone Savannah Quigley MD Primary Care Provider Unavaila jeanine Marilyn Dickson Unavailable [phone] Allergies No Known Allergies Reason For Referral No Information Medications Medication SIG (Take, Route, Fr equency, Duration) Notes Start Date End Date Status Meloxicam 15 MG 1 tablet Orally Once a day; Duration: 30 day(s) Not-Taking Vitamin D Active Omeprazole [...] Problem Acquired hammer toe of right foot (2402866881348009) Other hammer toe(s) (acquired), right foot (M20.41) Active confirmed Problem Localized, primary osteoarthritis of the ankle and/or foot (106607561) Primary osteoarthriti s, right ankle and foot (M19.071) Active confirmed Problem Arthritis of left ankle (1396100151569335) Arthritis of left ankle (M19.072) Active confirmed Plan Of Treatment Pending Test Test Name Order Date X ray : Foot, left 2V 03/15/2016 X ray : Foot, right 3V 04/19/2019 12063, J0702- INJECT or DRAIN, JOINT/BUR SA 09/10/2021 Insurance Providers Payer Name Payer Address Payer Phone Subscriber Number Group Number Insured Name Patient Relationship to Insured Coverage Start Date Coverage End Date [employer] [place] Medicare Advantage [facility] [address] [place] [place], [place] [address] [id number] Laura Montesinos Self - patient is the insured Medical (General) History Medical History History ICD Code osteoarthritis Back,Hip,and Knee pain Cataracts Fibromyalgia Gall bladder problems Psychiatric disorder, bi-polar Chicken pox Measles Mumps Arthritis Cancer Psychiatric disorder Surgical History Surgery Date(Month/Year) Bi-Lateral Cataract 2007 Lumpectomy L Breast 2010 Hammer toe R foot-unsucessful 02/2013 Gallbladder 01/2014 Hand Surgery 2019 Hospitalization History Reason Date(Month/Year) Wing- dizzy, nausea, shortness of breath 09/06/21
== END 2024-12-12 13:48 | disposition home or self-care (01) ==
LOC: HO.HOP 12:23
PROVIDERS: PCP Internal Medicine; Visit Provider Psychiatry & Neurology Psychiatry
DX: F31.32 Bipolar disorder, current episode depressed, moderate (principal); M71.38 Other bursal cyst, other site; M79.7 Fibromyalgia; G93.32 Myalgic encephalomyelitis/chronic fatigue syndrome
CPT/HCPCS: 90833; 99213

== ENCOUNTER → 2024-12-12 12:23 | Outpatient (BNVA) | payer MEDICARE, SELFPAY | PROVIDERS: PCP Internal Medicine; Visit Provider Psychiatry & Neurology Psychiatry | DX: F31.32 Bipolar disorder, current episode depressed, moderate (principal); M71.38 Other bursal cyst, other site; M79.7 Fibromyalgia; G93.32 Myalgic encephalomyelitis/chronic fatigue syndrome | CPT/HCPCS: 99212 ==

== ENCOUNTER 2025-03-13 13:40 | Outpatient (AMB) | payer MEDICARE, SELFPAY ==
--- NOTE | 2025-03-13 13:49 | HO.SPINEOV ---
Intake Visit Reasons: Discuss Surgery Intake Note: Ms. Montesinos is here today to Discuss Surgery. Clinical Medical Transcriptionist Required: No Allergies No Known Allergies Allergy (Verified 10/31/24 13:31) Assessment & Plan Assessment & Plan (1) Synovial cyst of lumbar spine: Code(s): M71.38 - Other bursal cyst, other site Category: Medical Plan Mrs Montesinos comes in today in follow-up. She continues to sotomayor with multiple back issues. We have seen her in the past and consider doing a right L5-S1 facetectomy with pedicle screws and revision of posterior instrumentation secondary to a recurrent synovial cyst that had been operated on a number of years ago right after her L4-5 fusion. When the original cyst was removed a few months after her fusion her right leg pain went away completely but she has been left with this right-sided low back pain that just will not go away when she is standing and walking. Her activities at this point are basically limited to walking little bit here and there in the house. She is also battled with bilateral SI joint pain. Unfortunately she has never had any response to the injections outside of 1 injection done maybe in the last 5 years that might have helped in this area. Therefore we have never been able to offer her SI joint fusion because of the lack of response to the injections. On top of this she also has scoliotic curvature and severe degenerative disc disease at L2-3 and L1-2. All of these things together make her a challenging patient to try to treat with surgery. On top of this, she does not have optimal bone quality at her age. We talked about the fact again that back pain can be very difficult to localize and treat with surgery. She did recently have an injection done with at [facility] pain management and does report significant relief of the right-sided low back pain that developed right after her synovial cyst resection. I am going to get the records and see if we can find out where he injected to help us confirm that surgery might be more helpful than we were originally speculating. Once I get those records I will call her. Total amount of time spent in this visit was 20 minutes in discussion of symptoms, previous lumbar MRI and CT imaging results done at [place] and subsequent plan of care Papi Oconnor MD,PhD [facility] Coding Level of Care Code Est Pt Level 3 (39740) Diagnoses Synovial cyst of lumbar spine M71.38
--- OUTSIDE RECORDS SUMMARY | 2025-03-13 18:12 | XMS_ITS | Data Portability ---
Author Organization MD - [facility], [facility] Address [address] [place] [address] Care Team Providers Care Kaiako Kura Tuarua Name Role Phone DENILSON GAGNON Primary Care Provider [phone] Assessment Encounter Date Assessment Date Assessment LastModified [...] months time for recheck, sooner if required [email or web address] Not available 01/03/2024 14:01:21 01/25/2024 01/25/2024 I [...] reviewed, updated and is located in the patient s chart. Examination: The patient is well [...] crepitus is noted. No ligamentous laxity. Negative Gm s . Calf is supple and nontender. Neurovascularly intact distally. X-rays reviewed at [facility]. 3 views of the right knee [...] or to follow up sooner if needed. [email or web address] Not available 01/25/2024 14:21:56 Plan of Treatment Reminders Order Date Submit Date Provider Last Modified By Organization Details Last Modified Time Details Appointments None recorded. Lab None recorded. Referral None recorded. Procedures None recorded. Surgeries None recorded. Imaging XR, knee, 4 or more view - rm 111 r knee 4v 2024 025 [email or web address], [address], [place], [address], 5 11:52:26 XR, foot, 3 or more view - rm 302 3v right foot 2023 024 [facility], [address], [address], [place], [address], 4 10:15:45 XR, foot, 3 or more view - rm 302 3v bilateral AP and mortis view 2023 024 [facility], [address], [address], [place], [address], 4 10:15:45 Medication Orders None recorded. Patient [...] a4ajBk vP9nXo QUaueC m3YtLR FvZlgJ JJ8mAn HZtai3 0t8731 AC0Kpb XWFU6T eUC8mr 84%3D INTERFACE [facility] [address], [place], [address], 01/03/2024 13:20:09 01/03/20 24 01/03/2024 XR, foot, 3 or more view [email or web address] ?Encry pted=s hAaTro YD8dLq bEUv6g %2BXZw aYqtaq 0bqfl% 2Fg9IQ a4ajBk vP9nXo QUaueC m3YtLR FvZlg JJ8mAn HZtai3 5o2762 AC0Kpb XWFU6T eUC8mr 84%3D INTERFACE [facility] [address], [place], [address], 01/03/2024 13:20:11 01/03/20 24 01/03/2024 XR, foot, 3 or more view [email or web address] ?Encry pted=s hAaTro YD8dLq bEUv6g %2BXZw aYqtaq 0bqfl% 2Fg9IQ a4ajBk vP9nXo QUaueC m3YtLR FvZlgJ JJ8mAn HZtai3 5e3439 AC0Kpb XWHUKf eUC8mr 84%3D INTERFACE [facility] [address], [place], [address], 01/03/2024 13:36:19 01/03/20 24 01/03/2024 XR, foot, 3 or more view [email or web address] ?Encry pted=s hAaTro YD8dLq bEUv6g %2BXZw aYqtaq 0bqfl% 2Fg9IQ a4ajBk vP9nXo QUaueC m3YtLR FvZlg JJ8mAn HZtai3 0o5173 AC0Kpb XWHUKf eUC8mr 84%3D INTERFACE [facility] [address], [place], [address], 01/03/2024 13:36:21 02/17/20 24 10/18/2020 imagi ng/di [...] a4ajBk vP9nXo QUaueC m3YtLR FvZlgJ JJ8mAn HZtai3 8b9428 AC0Kqb HuFWaG hKiQtr MwF INTERFACE [facility] [address], [place], [address], 07/26/2024 14:39:42 07/26/19 25 07/26/2024 XR, knee, 4 or more view [email or web address] ?Encry pted=s hAaTro YD8dLq bEUv6g %2BXZw aYqtaq 0bqfl% 2Fg9IQ a4ajBk vP9nXo QUaueC m3YtLR FvZlgJ JJ8mAn HZtai3 3s0085 AC0Kqb HuFWaG hKiQtr MwF INTERFACE [facility] [address] [facility] [address], [place], [address], 07/26/2024 14:39:44 Result Notes Documentation Provider Name and Address Organization Details Recorded Time Xr, Foot, 3 Or More View : [email or web address] Encrypted=unEvGaiWW2rFczE Uv6g%0CUImrDoqbj4duda%2Fg 0MJc7cwPjhU5oGkXDewsEq8Jt UVBgQeuBAQ4qQbOOiuo72t917 4GX2QzaAFVJ2AtKO9dq53%3D Not Available [facility] 01/03/2024 13:2 0:10 Xr, Foot, 3 Or More View : [email or web address] Encrypted=qrRrEhyGO1lYtwK Uv6g%0HIJkcRmdeq0rwwz%2Fg 5ZPw1syEmtL2uCsIHpicIu1Kg MASiFrgKFW7zKoYBmoe28o642 6AB1KafXEJM2CaMW4ng86%3D Not Available [facility] 01/03/2024 13:2 0:12 Xr, Foot, 3 Or More View : [email or web address] Encrypted=jgOeGvrRD5dJenP Uv6g%5KFWcsUyxfj3fshf%2Fg 6HTq9tsBqkX3dUbGTwmaAu8Se TCJgTexJIR1oDrKNjaq64p043 4CX2VpsIXRVAcfUN5vu67%3D Not Available [facility] 01/03/2024 13:3 6:19 Xr, Foot, 3 Or More View : [email or web address] Encrypted=yxUxTluKP4uUbnL Uv6g%5FXKgcClvne5lenr%2Fg 3LJr1seTauS8fKdPOpvgBs5Ap WMBuMqrNAV0iErGNijc09f150 3HJ1BcgVIPLEbdOP3za69%3D Not Available [facility] 01/03/2024 13:3 6:21 Xr, Knee, 4 Or More View : [email or web address] Encrypted=daHnOuyFT9fGiyG Uv6g%2DTVndRnmia6ptqx%2Fg 7DZh5anXjnH6bIrPJszjFq2Ue QWBlUmeXBH9cXtKXbmq18w105 6DY2IdcRdEDiYmRvAbfGqB Not Available [facility] 07/26/2024 14:39: 43 Xr, Knee, 4 Or More View : [email or web address] Encrypted=ldNoDayCZ4vBbzV Uv6g%7JMXbvIhtyx4xoxw%2Fg 4VLg1yxXnoT9hVvJOpfeAm6Jt KEUlBzyDMZ4qZvZGpgv93f609 5YR8IasKlSGvBdCmDtcVrB Not Available [facility] 07/26/2024 14:39: 45 Problems Name Problem SNOMED Code Status Onset Date Resolution Date Notes Provider Name and Address Organization Details Recorded Time Pain in both feet 57733365634894 102 Active 2023 Titi Merino PA-C [address], [facility] [place], [address] , [facility] 08:56:46 Acquired hammer toe of right foot 93373693362575 05 Active 2023 Titi Merino PA-C [address], [place], [address], [facility] 4 13:59:23 Acquired hammer toe of left foot 92416897932229 03 Active 2023 Titi Merino PA-C [address], [place], [address], [facility] 4 13:59:31 Bilateral arthritis of ankle 68963533463997 05 Active 2023 Titi Merino PA-C [address], [place], [address], [facility] 13:59:45 Problem Notes None recorded. Procedures Surgical History Date Name Laterality Status Provider Name and Address Organization Details Recorded Time 5 Tendon Sheath Kenalog Injection, L/R completed Mahi Guy CNP [address] [facility], [place], [address], [facility] 07/26/2024 14:58:53 4 Sports Knee 4&1 completed Austin Dominguez PA-C [address], [place], [address], [facility] 01/25/2024 14:12:13 4 Ankle Joint Asp & Inj, Bilateral Celestone 2cc completed Titi Merino PA-C [address] [facility], [place], [address], [facility] 01/03/2024 14:00:14 4 Knee Kenalog 40mg 2cc Injection, L/R completed Antony Cain PA-C [address], [place], [address], [facility] 12/06/2023 13:41:53 Imaging Results None recorded. Procedure Notes None recorded. Medical Equipment None [...] Not Available No t Available lithium carbonate Silver [place] Carbonate 150MG Capsule 07/26 completed Statu s: [...] Updated DateTime 07/26/2024 162.56 cm 22.3 kg/m2 19957.01 g TINA LUZ [facility] 07/26/2024 14:20:39 Date Recorded Body height Body mass index (BMI) Body weight Provider Name and Address Organization Details Last Updated DateTime 12/06/2023 162.56 cm 23.2 kg/m2 35906.97 g Louis Navas [facility] 12/06/2023 13:06:51 Date Recorded Body height Body mass index (BMI) Body weight Provider Name and Address Organization Details Last Updated DateTime 01/03/2024 162.56 cm 23.2 kg/m2 37701.97 g Shashi Sharpe [facility] 01/03/2024 13:12:00 Date Recorded Body height Body mass index (BMI) Body weight Provider Name and Address Organization Details Last Updated DateTime 01/25/2024 162.56 cm 23.2 kg/m2 39452.97 g MARSHA REZA [facility] 01/25/2024 13:53:11 Social History Question Answer Notes LastModified by Organizat ion Details LastModified Time Tobacco Smoking Status Never Smoker MARSHA marquez [place] [facility] 01/25/2024 13:56:39 What Is Your Relationship [...] Response Allergies/Hayfever N Coronary Artery Disease N Breathing or lung disorders N Anxiety/Depression N Emphysema N Nerve Disorders N Thyroid Problems N COPD N Pacemaker N Anemia N Kidney/Bladder Problems N Vascular Disease N Heart Trouble N Heart Attack (OR) N Gastrointestinal Disease N Cholesterol Y Diabetes [...] Diagnosis SNOMED-CT Code Diagnosis ICD10 Code Diagnosis IMO Codes Diagnosis Note [id number] KAE Ocampo [address] [place] [address] 12/06/2023 12:47:18 12/06/2023 14:20:28 Osteoarthritis of right knee joint 5653072160 58848 M17.11 [id number] KAE Choe [address] [place] [address] 01/03/2024 13:01:15 01/31/2024 10:15:44 Pain in both feet 5685096349 4460056 M79.671 M79.672 Acquired h ammer toe of right foot 8286241237 292903 M20.41 Acquired h ammer toe of left foot 3392117713 497171 M20.42 Bilateral arthritis of ankle 0040701035 574583 M13.871 M13.059 [id number] Austin Dominguez PA-C [facility] [address] [place] [address] 01/25/2024 13:47:06 02/21/2024 10:26:39 Osteoarthritis of right knee joint 4020932424 99184 M17.11 Pes anseri nus bursitis of right knee 3766204095 935788 M70.51 [id number] Mahi Brooks, HEAV[employer] TECHNICIAN [facility] [address] [place] [address] 07/26/2024 14:09:02 08/07/2024 12:46:52 Pain of knee region 2835571339 M25.561 [id number] Health Concerns Section Related Observation LastModified by Organization Detai ls LastModified Time None Recorded Concern Status LastModified by Organization Details LastModified Time None Recorded Advance Directives Directive None Recorded Payers Insurance Date Sequence Insurance Name Policy Number Policy Puga Covered Member ID Puga Member ID Guarantor Name 08/07/2024 1 [employer] - MED[employer]ARE ADVANTAGE PLAN (MEDICARE REPLACEMENT HMO) [id number] 1 Laura E E Dimella [id number] Laura E Yamel Notes Date Note Type Note Provider Name [...] reviewed, updated and is located in the patient s chart.Examination:T he patient is well appearing and in no apparent distress. Alert and oriented x3. Gait is symmetric. No significant swelling, warmth, erythema the right knee. She has a well-healed incision laterally. Range of motion is full extension flexion to 20 with only mild discomfort. Good strength and stability with right knee. There is some mild tenderness of the medial and lateral joint line. Peripheral, vascular, lymphatic examination, skin, neurological, coordination, reflexes, sensation are within normal limits.X-rays ordered, obtained and reviewed at [facility] 3 views of the right knee [...] her satisfaction today. Antony Cain PA-C [address], [place], [address], [facility] 12/06/2023 13:42:23 01/03/2024 text/html ROS as noted in the HPI I am seeing this patient under the [...] the right side. Titi Merino PA-C [address], [place], [address], [facility] 01/03/2024 14:02:09 07/26/2024 text/html ROS as noted in the HPI Delmi is a 79-year-old who is here [...] here today for further evaluation. Mahi Guy, HEAVY LINE TECHNICIAN [address], [place], [address], [facility] 07/26/2024 14:59:12 OBGyn Episode No OBEpisode recorded.
--- OUTSIDE RECORDS SUMMARY | 2025-03-13 18:12 | XMS_ITS | Clinical Summary ---
Author Organization [facility] Address [address] [id number] Care Team Providers Care Registered Nurse Fetal Name Role Phone Savannah Quigley MD Primary Care Provider [phone] Allergies No known active allergies Medications Medication [...] 1-dose 75+ series) 2021 Influenza Vaccine (#1) 2025 Hepatitis B Vaccines Aged Out No long er eligible based on patient's age to complete this topic RSV Ped < 20 months Aged Out No longe r eligible based on patient's age to complete this topic Care Teams Registered Nurse Fetal Relationship Specialty Start Date End Date Savannah Quigley MD [address] [place] [address] PCP - General Internal Medicine 07/10/19
--- OUTSIDE RECORDS SUMMARY | 2025-03-13 18:12 | XMS_ITS | Patient Health Record ---
[facility] Address [address] [place] [address] Care Team Providers Care Hostess Host Name Role Phone Savannah Quigley MD Primary Care Provider Unavaila jeanine Marilyn Dickson Unavailable [phone] Allergies No Known Allergies Reason For Referral [...] Problem Acquired hammer toe of right foot (5950531313068888) Other hammer toe(s) (acquired), right foot (M20.41) Active confirmed Problem Localized, primary osteoarthritis of the ankle and/or foot (430574056) Primary osteoarthriti s, right ankle and foot (M19.071) Active confirmed Problem Arthritis of left ankle (7676080684821614) Arthritis of left ankle (M19.072) Active confirmed Plan Of Treatment Pending Test Test Name Order Date X ray : Foot, left 2V 03/15/2016 X ray : Foot, right 3V 04/19/2019 25706, J0702- INJECT or DRAIN, JOINT/BUR SA 09/10/2021 Insurance Providers Payer Name Payer Address Payer Phone Subscriber Number Group Number Insured Name Patient Relationship to Insured Coverage Start Date Coverage End Date [employer] [place] [employer] Ad[employer] [facility] [address] [place], [place] [address] [id number] Laura Montesinos Self - patient is the [...]
== END 2025-03-13 15:07 | disposition home or self-care (01) ==
LOC: HO.HNS 13:41
PROVIDERS: PCP Internal Medicine; Visit Provider Physician Assistant
DX: M71.38 Other bursal cyst, other site (principal)
CPT/HCPCS: 99213

== ENCOUNTER → 2025-03-13 13:40 | Outpatient (BNVA) | payer MEDICARE, SELFPAY | PROVIDERS: PCP Internal Medicine; Visit Provider Physician Assistant | DX: M71.38 Other bursal cyst, other site (principal) | CPT/HCPCS: 99212 ==

== ENCOUNTER 2025-04-29 13:52 | Outpatient (AMB) | payer MEDICARE, SELFPAY ==
--- OUTSIDE RECORDS SUMMARY | 2023-11-22 09:30 | XMS_ITS | Continuity of Care Document ---
Author Organization [facility] Address [address] [place] [address] Phone Care Team Providers Care Employee Relations Representative Name Role Phone Nelson GUERRA, RVT, RACHEL, Richie Unavailable U navailable Allergies, Adverse Reactions, Alerts Substance Reaction Status Criticality No Known Allergies Active No Inform ation Medications Medication Instructions Dosage Effective Dates (start - stop) Status Comments Lamictal 100 mg tablet - Active Effexor XR 75 mg capsule,extended release - Active omeprazole 20 mg capsule,delayed release - Active tramadol 50 mg tablet - Active Trileptal 300 mg tablet - Active Procedures Procedure Date Office/Outpt E&M Established 15 Mins- CT & [place] Duplex Scan-extrem Veins; Comp- CT & [place] Duplex Scan-extrem Veins; Uni/ Office/Outpt E&M Established 25 Mins Apr Office/Outpt E&M Established 15 Mins Mar Phleb Veins - Extrem - To Duplex Scan-extrem Veins; Uni/ Endovenous Laser, 1st Vein Duplex Scan-extrem Veins; Uni/ Phleb Veins - Extrem - To 20 Endovenous Laser, 1st Vein Endovenous Laser, 1st Vein Endovenous laser vein addon Office/Outpt E&M Established 15 Mins Nov Duplex Scan-extrem Veins; Comp Advance Directives Directive Yes / No Effective Date File Name Other Directive No 11/22/2023 N/A WARNING:The information contained in this section is historical and is provided for information only and does not constitute a legal document or any assurance that the information is still accurate. Please verify the information with the mason of the legal document before using it for clinical purposes. Encounters Encounter Description Practice Location Reason(s) For Visit Diagnoses Date Provider Providers Copied on Encounter Office/Outpt E&M Established 15 Mins- [facility] & [place] [facility], [address] [place] [address] Dr Lopez 1000SuBk arizmendi [place], [id number], tel:[phone] CV[place] - [place] Venous insufficiency (chronic) (peripheral) 4 Nelson GUERRA RVT, RACHEL Quiroz. [address] [place] [address], [place], [place], [id number] , [place]. tel:[phone] Referring Provider: Savannah Oseguera, [address] [place] [address], [address]. tel:[phone] [facility], [address] [place] [address] Dr Lopez 1000Bk arizmendi [place], [id number], tel:[phone] [place] Chronic venous hypertension (idiopathic) with other complications of bilateral lower extremity 4 Nelson GUERRA RVT, RACHEL Quiroz. [address] [place] [address], [place], [place], [id number] , [place]. tel:[phone] Referring Provider: Savannah Oseguera, [address] [place] [address] Suite [facility], [place], [address]. tel:[phone] [facility], [address] [place] [address] Dr Lopez 1000[facility] Bk Dem[place], [id number], tel:[phone] [facility] Pain in right leg 3 Jose F Bassett. [address] [place] [address], [place], [address], [place]. tel:[phone] Referring Provider: Savannah Oseguera, [address] [place] [address] Suite [facility], [place], [address]. tel:[phone] Office/Outpt E&M Established 25 Mins [facility], [address] [place] [address] [facility] 1000Suite 1000Bk [place], [id number], [place] tel:[phone] CVR - [place] - [place] Venous insufficiency (chronic) (peripheral)Tad n in right lower legPain in left lower leg Nov- 3 Jose F GUERRA FACS T RACHEL Bassett. [address] [place] [address], [place], [address], [place]. tel:[phone] Referring Provider: Savannah Oseguera, [address] [place] [address] Suite [facility], [place], [address]. tel:[phone] Office/Outpt E&M Established 15 Mins [facility], [address] [place] [address] [facility] 1000[address] 1000Bk [place], [id number], [place] tel:[phone] CVR - [place] Chronic venous hypertension (idiopathic) with other complications of bilateral lower extremity Oct- 3 Jose F GUERRA FACS T RACHEL Bassett. [address] [place] [address], [place], [address], [place]. tel:[phone] Referring Provider: Savannah Oseguera, [address] [place] [address] Suite [facility], [place], [address]. 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 [address] [address], [place], [place], [id number] , [place]. tel:[phone] Referring Provider: Savannah Oseguera, [address] [place] [address] Suite [facility], [place], [address]. tel:[phone] [facility], [address] [place] [address] Dr [address] 1000Bk [place], [id number], [place] tel:[phone] [place] Encntr for f/u exam aft trtmt for cond oth than malig neoplmVaricose veins of left lower extremities with pain Sep-0 3 Jose F GUERRA FACS RVT RPVI K Serjio. [address] [facility], [address], [place], [address], [place]. tel:[phone] Referring Provider: Savannah Oseguera, [address] [place] [address] [address] [facility], [place], [address]. 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 [facility], [place] [address], [place], [address], [place]. tel:[phone] Referring Provider: Savnanah Oseguera, [address] [place] [address] Suite [facility], [place], [address]. tel:[phone] [facility], [address] [place] [address] [address] 1000Bk [place], [id number], [place] tel:[phone] CV[place] Encntr for f/u exam aft trtmt for cond oth than malig neoplmVaricose veins of right lower extremities with pain Jan-0 3 Jose F GUERRA FACS RVT RPVI Ana Rosa Bassett. [address] [facility], [address], [place], [address], [place]. tel:[phone] Referring Provider: Savannah Oseguera, [address] [place] [address] [address] [facility], [place], [address]. tel:[phone] [facility], [address] [place] [address] Dr [address]Bk [place], [id number], [place] tel:[phone] CVR - [place] Varicose veins of right low extrm w oth complications 3 Jonas CATRINA Mitra . [address] [place] [address], [address], [facility] [place], [id number] , [place]. tel:[phone] Referring Provider: Savannah Oseguera, [address] [place] [address] [address] [facility], [place], [address]. tel:[phone] [facility], [address] [place] [address] [address] 1000Bk [place], [id number], [place] tel:[phone] CV[place] - [place] Varicose veins of right low extrm w oth complications 3 Jose F GUERRA FACS Kanchan Bassett. [address] [place] [address], [place] [address], [facility] [place], [address], [place]. tel:[phone] Referring Provider: Savannah Oseguera, [address] [place] [address] [address] [facility], [place], [address]. tel:[phone] [facility], [address] [place] [address] [facility] 1000[address] 1000Bk [place], [id number], [place] tel:[phone] CVR [place] Varicose veins of right low extrm w oth complications 3 Jose F Bassett. [address] [place] [address], Suite [facility], [place], [address], [place]. tel:[phone] Referring Provider: Savannah Oseguera, [address] [place] [address] [address], [place], [address]. tel:[phone] Office/Outpt E&M Established 15 Mins [facility], [address] [place] [address] [facility] 1000[address] 1000Bk [place], [id number], [place] tel:[phone] CV[place] Venous insufficiency (chronic) (peripheral) 3 Jose F Bassett. [address] [place] [address], [address], [place], [address], [place]. tel:[phone] Referring Provider: Savannah Oseguera, [address] [place] [address] [address] [facility], [place], [address]. tel:[phone] [facility], [address] [place] [address] 1000[facility] 1000, [place], [id number], tel:[phone] CVR - [facility] No Information 3 Jose F GUERRA FACS T ZEFERINO Bassett. [address] [place] [address] 302, [place], [address], [place]. tel:[phone] Referring Provider: Savannah Oseguera, [address] [place] [address], [place], [address]. tel:[phone] [facility], [address] [place] [address] 1000[facility] 1000, [place], [id number], tel:[phone] CVR - [facility] Venous insufficiency (chronic) (peripheral)Tad n in right legPain in left leg 3 Jose F GUERRA FACS Kanchan Bassett. [address] [place] [address], [place], [address], [place]. tel:[phone] Referring Provider: Savannah Oseguera, [address] [place] [address], [place], [address]. tel:[phone] Family History Family Member Type Diagnosis Age At Onset No Information Payers Payer name Insurance type Covered democrat ID Radha honey(s) [employer] CI [id number] Social History Type Description Quantity Date Captured Comments Alcohol Use Details Unknown Caffeine Use Details Unknown Tobacco Use Status Current non-smoker Smoking Status Never Smoker Non-Smoking Tobacco Use Details : No Details Available : No Details Available Sex Female Vital Signs Date / Time: Height Weight BMI Pulse Rate Blood Pressure Temperature Respiratory Rate Body Surface Area Head Circumference Head Circ. Percentile Wt./Rishi. Percentile BMI percentile Pulse Ox Inhaled Ox 59.420 kg (131.00 lbs) 23.2 4 kg/m eter (2) 120/74 mm[Hg] Chief Complaint And Reason For Visit No Information Reason For Referral Reason For Referral No Information Plan Of Treatment Date Type Action Status Goal Diet education completed Goal Tobacco cessation counseling completed Goal Tobacco cessation counseling completed Referral Ordered: Weight management: Referral to physician timeframe: 3 Months (related to Body mass index (BMI) 23.0-23.9, adult) ordered History Of Present Illness Encounter Date Complaint History Of Prese nt Illness No Information Functional Status Date Functional Assessmen t No Information Instructions Date Instruction Additional Infor mation Lifestyle education Related to B erin mass index (BMI) 23.0-23.9, adult Compression stocking usage as conservative measure Related to Venous insufficiency (chronic) (peripheral) Patient education booklet given Related to Venous insufficiency (chronic) (peripheral) Diet education Related to Body mass index (BMI) 23.0-23.9, adult Giving Encouragement to exercise Related to Body mass index (BMI) 23.0-23.9, adult Assessments Type Assessment Date No Information Patient Care Teams Name Effective Dates (start - stop) Status Members No Information
--- OUTSIDE RECORDS SUMMARY | 2025-04-29 15:29 | XMS_ITS | Data Portability ---
Author Organization [place] - [facility], [facility] Address [address] [place] [address] Care Team Providers Care Parts Cleaner Name Role Phone DENILSON GAGNON Primary Care Provider [phone] Assessment Encounter Date Assessment Date Assessment LastModified [...] nontender. Neurovascularly intact distally. X-rays reviewed at [facility]. 3 views of the right knee today [...] or to follow up sooner if needed. [email or web address] Not available 01/25/2024 14:21:56 Plan of Treatment Reminders Order Date Submit Date Provider Last Modified By Organization Details Last Modified Time Details Appointments None recorded. Lab None recorded. Referral None recorded. Procedures None recorded. Surgeries None recorded. Imaging XR, knee, 4 or more view - rm 111 r knee 4v 2024 025 [email or web address], [address], [address], [place], [address], 5 11:52:26 XR, foot, 3 or more view - rm 302 3v right foot 2023 024 [facility], [address], [address], [place], [address], 4 10:15:45 XR, foot, 3 or more view - rm 302 3v bilateral AP and mortis view 2023 024 [facility], [address], [address], [place], [address], 4 10:15:45 Medication Orders None recorded. Patient [...] a4ajBk vP9nXo QUaueC m3YtLR FvZlgJ JJ8mAn HZtai3 2u2036 AC0Kpb XWFU6T eUC8mr 84%3D INTERFACE [facility] [address], [place], [address], 01/03/2024 13:20:09 01/03/20 24 01/03/2024 XR, foot, 3 or more view [email or web address] ?Encry pted=s hAaTro YD8dLq bEUv6g %2BXZw aYqtaq 0bqfl% 2Fg9IQ a4ajBk vP9nXo QUaueC m3YtLR FvZlg JJ8mAn HZtai3 6s0536 AC0Kpb XWFU6T eUC8mr 84%3D INTERFACE [facility] [address], [place], [address], 01/03/2024 13:20:11 01/03/20 24 01/03/2024 XR, foot, 3 or more view [email or web address] ?Encry pted=s hAaTro YD8dLq bEUv6g %2BXZw aYqtaq 0bqfl% 2Fg9IQ a4ajBk vP9nXo QUaueC m3YtLR FvZlgJ JJ8mAn HZtai3 1q8601 AC0Kpb XWHUKf eUC8mr 84%3D INTERFACE [facility] [address], [place], [address], 01/03/2024 13:36:19 01/03/20 24 01/03/2024 XR, foot, 3 or more view [email or web address] ?Encry pted=s hAaTro YD8dLq bEUv6g %2BXZw aYqtaq 0bqfl% 2Fg9IQ a4ajBk vP9nXo QUaueC m3YtLR FvZlg JJ8mAn HZtai3 8b4545 AC0Kpb XWHUKf eUC8mr 84%3D INTERFACE [facility] [address], [place], [address], 01/03/2024 13:36:21 02/17/20 24 10/18/2020 imagi ng/di [...] a4ajBk vP9nXo QUaueC m3YtLR FvZlgJ JJ8mAn HZtai3 2x5620 AC0Kqb HuFWaG hKiQtr MwF INTERFACE [facility] [address] [facility] [address] [address], [place], [address], 07/26/2024 14:39:42 07/26/19 25 07/26/2024 XR, knee, 4 or more view [email or web address] ?Encry pted=s hAaTro YD8dLq bEUv6g %2BXZw aYqtaq 0bqfl% 2Fg9IQ a4ajBk vP9nXo QUaueC m3YtLR FvZlgJ JJ8mAn HZtai3 3i2557 AC0Kqb HuFWaG hKiQtr MwF INTERFACE [facility] [address] [facility] [address], [place], [address], 07/26/2024 14:39:44 Result Notes Documentation Provider Name and Address Organization Details Recorded Time Xr, Foot, 3 Or More View : [email or web address] Encrypted=acGvSbiLI9qDlzX Uv6g%9BCRllNfnsq9mhng%2Fg 1XRv9xzVkwG8wKdAWajzVd4Rs DVBpKcbIZL3oBqNZsnx33g516 6AN4FbbRYEL2WpPS8fb35%3D Not Available [facility] 01/03/2024 13:2 0:10 Xr, Foot, 3 Or More View : [email or web address] Encrypted=kjYnWwnNR2pGpmK Uv6g%4JIPrrBhkyx7sftp%2Fg 4OBl0faZtfR8aQqCEssnBq8Ht GVFuDtfTCS2aAeAZogn71w711 2NO2OxgTFMN7UnPX4tn25%3D Not Available [facility] 01/03/2024 13:2 0:12 Xr, Foot, 3 Or More View : [email or web address] Encrypted=rlZwPunGS5nDxkR Uv6g%2VBSvjZdzxs5yvwu%2Fg 7LTr3cdUjoO0cXqLPxqxNr4Rr NSVzUnyEGR7sMiARemc20z471 6XT4ValIWNMMhpCY8vc74%3D Not Available [facility] 01/03/2024 13:3 6:19 Xr, Foot, 3 Or More View : [email or web address] Encrypted=soWcWzrOU4iTezP Uv6g%7HFWghCvayc5qxmk%2Fg 5SWm7ukHtlJ2aUzNAatjQm0Fy XYBnZniRJH4kHvISwzr06s749 1RL7KfbMLECKeqRU7ku38%3D Not Available [facility] 01/03/2024 13:3 6:21 Xr, Knee, 4 Or More View : [email or web address] Encrypted=hcSjFyaJV1cXjdR Uv6g%3CWXfqQfvnr7kcjg%2Fg 6IIh8huOpxM0jZdXYappPu4Bs IZSqKhaROO5jBfZPznx93m255 6SZ6DriAgVGrRiLtHrwJeP Not Available [facility] 07/26/2024 14:39: 43 Xr, Knee, 4 Or More View : [email or web address] Encrypted=xkLfSleIV0eBmiB Uv6g%9ONVbjPwkuv9qetu%2Fg 2NKb1mnLeeB3kNgXSfuaEt3Sr BGWuTwcWAK8vBeVSdth55c856 5JJ5RypBhVCxEkXdGbpBbW Not Available [facility] 07/26/2024 14:39: 45 Problems Name Problem SNOMED Code Status Onset Date Resolution Date Notes Provider Name and Address Organization Details Recorded Time Pain in bilateral feet 12837215424151 102 Active 2023 Titi Merino PA-C [address] [facility] [address], [place], [address] , [facility] 08:56:46 Acquired hammer toe of right foot 76721532640579 05 Active 2023 Titi Merino PA-C [address], [place], [address], [facility] 4 13:59:23 Acquired hammer toe of left foot 09122143858385 03 Active 2023 Titi Merino PA-C [address], [facility] [place], [address], [facility] 4 13:59:31 Bilateral arthritis of ankle 48063216396194 05 Active 2023 Titi Merino PA-C [address], [place], [address], [facility] 13:59:45 Problem Notes None recorded. Procedures Surgical History Date Name Laterality Status Provider Name and Address Organization Details Recorded Time 5 Tendon Sheath Kenalog Injection, L/R completed Mahi Guy CNP [address] [facility], [place], [address], [facility] 07/26/2024 14:58:53 4 Sports Knee 4&1 completed Austin Dominguez PA-C [address], [place], [address], [facility] 01/25/2024 14:12:13 4 Ankle Joint Asp & Inj, Bilateral Celestone 2cc completed Titi Merino PA-C [address] [facility], [place], [address], [facility] 01/03/2024 14:00:14 4 Knee Kenalog 40mg 2cc Injection, L/R completed Antony Cain PA-C [address], [place], [address], [facility] 12/06/2023 13:41:53 Imaging Results [...] Not Available No t Available lithium carbonate [place]ayan Carbonate 150MG Capsule 07/26 completed Statu s: [...] Updated DateTime 07/26/2024 162.56 cm 22.3 kg/m2 76703.01 g TINA LUZ [facility] 07/26/2024 14:20:39 Date Recorded Body height Body mass index (BMI) Body weight Provider Name and Address Organization Details Last Updated DateTime 12/06/2023 162.56 cm 23.2 kg/m2 04517.97 g Louis Navas [facility] 12/06/2023 13:06:51 Date Recorded Body height Body mass index (BMI) Body weight Provider Name and Address Organization Details Last Updated DateTime 01/03/2024 162.56 cm 23.2 kg/m2 72219.97 g Shashi Sharpe [facility] 01/03/2024 13:12:00 Date Recorded Body height Body mass index (BMI) Body weight Provider Name and Address Organization Details Last Updated DateTime 01/25/2024 162.56 cm 23.2 kg/m2 01030.97 g MARSHA REZA [facility] 01/25/2024 13:53:11 Social History Question Answer Notes LastModified by Organizat ion Details LastModified Time Tobacco Smoking Status Never Smoker MARSHA marquez [place] - [facility] 01/25/2024 13:56:39 What Is Your Relationship Status? [...] Disease N Heart Trouble N Heart Attack ([place]) N Gastrointestinal Disease N Cholesterol Y Diabetes [...] ICD10 Code Diagnosis IMO Codes Diagnosis Note [id number] KAE Ocampo [address] [place] [address] 12/06/2023 12:47:18 12/06/2023 14:20:28 Osteoarthritis of right knee joint 8465254680 42970 M17.11 [id number] KAE Choe [address] [place] [address] 01/03/2024 13:01:15 01/31/2024 10:15:44 Pain in bilateral feet 8638693803 3112030 M79.671 M79.672 Acquired h ammer toe of right foot 3771202500 671796 M20.41 Acquired h ammer toe of left foot 9795788728 798876 M20.42 Bilateral arthritis of ankle 6189867931 134977 M13.871 M13.868 [id number] Austin Dominguez PA-C [facility] [address] [place] [address] 01/25/2024 13:47:06 02/21/2024 10:26:39 Osteoarthritis of right knee joint 5778941536 95551 M17.11 Pes anseri nus bursitis of right knee 4001016390 256701 M70.51 [id number] Mahi Brooks, [employer] [facility] [address] [place] [address] 07/26/2024 14:09:02 08/07/2024 12:46:52 Pain of knee region 3474965237 M25.561 [id number] Health Concerns Section Related Observation LastModified by Organization Detai ls LastModified Time None Recorded Concern Status LastModified by Organization Details LastModified Time None Recorded Advance Directives Directive None Recorded Payers Insurance Date Sequence Insurance Name Policy Number Policy Puga Covered Member ID Puga Member ID Guarantor Name 08/07/2024 1 [employer] MED[employer]ARE ADVANTAGE PLAN (MEDICARE REPLACEMENT HMO) [id number] Laura E E Dimella [id number] Laura E Yamel Notes Date Note Type [...] normal limits.X-rays ordered, obtained and reviewed at [facility] 3 views of the right knee reviewed [...] her satisfaction today. Antony Cain PA-C [address] [facility] [address], [place], [address], [facility] 12/06/2023 13:42:23 01/03/2024 text/html ROS as noted [...] the right side. Titi Merino PA-C [address] [facility] [address], [place], [address], [facility] 01/03/2024 14:02:09 07/26/2024 text/html ROS as noted [...] here today for further evaluation. Mahi Guy, [employer] [address] [facility] [address], [place], [address], [facility] 07/26/2024 14:59:12 OBGyn Episode No OBEpisode recorded.
--- OUTSIDE RECORDS SUMMARY | 2025-04-29 15:29 | XMS_ITS | Patient Health Record ---
Author Organization [facility] Address [address] [place] [address] Care Team Providers Care Automobile Brakes Bonder Name Role Phone Savannah Quigley MD Primary Care Provider Unavaila jeanine Marilyn Dickson Unavailable [phone] Allergies No Known Allergies Reason For Referral [...] Problem Acquired hammer toe of right foot (7357318395733533) Other hammer toe(s) (acquired), right foot (M20.41) Active confirmed Problem Localized, primary osteoarthritis of the ankle and/or foot (891925772) Primary osteoarthriti s, right ankle and foot (M19.071) Active confirmed Problem Arthritis of left ankle (6105892357023070) Arthritis of left ankle (M19.072) Active confirmed Plan Of Treatment Pending Test Test Name Order Date X ray : Foot, left 2V 03/15/2016 X ray : Foot, right 3V 04/19/2019 28976, J0702- INJECT or DRAIN, JOINT/BUR SA 09/10/2021 Insurance Providers Payer Name Payer Address Payer Phone Subscriber Number Group Number Insured Name Patient Relationship to Insured Coverage Start Date Coverage End Date [employer] [place] [employer] Advantage [facility] [address], [place] [address] [id number] Laura Montesinos Self - patient is the [...]
--- OUTSIDE RECORDS SUMMARY | 2025-04-29 15:29 | XMS_ITS | Clinical Summary ---
Author Organization [facility] Address [address] [place] [address] Phone Care Team Providers Care Order Detailer Name Role Phone Amaya Quigley MD Primary Care Provider [phone] Allergies No known active allergies Medications lamoTRIgine (LaMICtal) 100 mg tablet Take 1 tablet (100 mg total) by mouth 1 (one) time each day. Active modafiniL (PROVIGIL) 100 mg tablet 0 Refills, Maintenance, 04/11/24 14:13:00 EDT, Partial fill upon patient request if the prescription is for a schedule II opioid drug. 4 Active venlafaxine XR (EFFEXOR-XR) 75 mg 24 hr capsule 7 Active esomeprazole (NexIUM) [address] capsule 5 Active OXcarbazepine (TRILEPTAL) 300 mg tablet Take 1 tablet (300 mg total) by mouth 2 (two) times a day. Active polyethylene glycol (Golytely) 236-22.74-6.74 -5.86 gram solution Take 240 mL by mouth. 5 Active ketoconazole (NIZORAL) 2 % shampoo APPLY 1 GRAM TO THE EYELIDS 2-3 TIMES A WEEK IN THE SHOWER LEAVE ON FOR 3-5 MINUTES AND THEN RINSE 5 Active Active Problems Problem Noted Date Diagnosed Date Chronic right-sided low back pain without sciati ca 05/10/2024 Assessment & Plan (02/28/2025 3:41 PM EDT): Ms. Segundo has had success with treating that 1 focal spot of right sided back pain and has plans to follow-up again with Dr. Morales for a repeat injection. The other issue is more chronic and relates to her lower back pain which she demonstrates transversely at the lumbosacral junction but not specifically at the SI joints. This has been present for 5 to 5-1/2 years and limits her activities because it hurts so much to turn and twist. She feels it when trying to put on her seatbelt or do any vacuuming and sweeping. We discussed her MRI from last year which shows some degenerative change at L5-S1 where she had a right sided procedure and has a small residual synovial cyst. If we consider further surgery, it would likely involve incorporating L5-S1 into her existing fusion. It is difficult to predict how much this would help and in the end, I recommended against it. She agrees and we will just continue adjusting her daily activity. Assessment & Plan (10/22/2024 3:53 PM EDT): I reviewed the options with Ms. Segundo regarding her persistent right sided pain which [...] the MRI findings in detail with Ms. Segundo. She was here for second opinion on [...] Encounters Date Type Department Care Team Description 02/28/2025 2:45 PM EDT Office Visit [facility] [place] [address] [place] [address] Karen Machado MD Chronic right-sided [...] Medical History Medical History Date Comments Cancer ([facility] V24, [facility] V28) DX:Cancer (HCC) Osteoporosis DX:Osteoporosis Arthritis DX:Arthritis [...] - Inhaled Oxygen Concentration - - Weight 60.8 kg (134 lb) 02/28/2025 2:50 PM EDT Height 160 cm (5' 3 ) 02/28/2025 2:50 PM EDT Body Mass Index 23.74 02/28/2025 2:50 PM EDT Plan of Treatment Health Maintenance Due Date Last Done Comments RSV Immunization Adult Patients (1 - 1-dose 75+ series) 2021 Cholesterol Screening (Lipid Panel) 04/10/2024 Falls Risk Assessment 04/10/2024 Hepatitis C Screening 04/10/2024 Medicare Annual Wellness Visit 04/10/2024 Osteoporosis Screening (Bone Density Screening) 04/10/2024 Social Influencers of Health Screening 04/10/2024 Depression Screening 06/19/2024 COVID-19 Vaccine ( season) 2025 03/26/2024, 03/21/2023, 04/29/2022, Additional history exists Influenza Vaccine (#1) 2025 , 03/21/2023, 03/23/2022, Additional history exists DTaP,Tdap,and Td Vaccines (4 - Td or Tdap) 06/17/2031 06/17/2021, 06/17/2010, 11/18/1999 Pneumococcal Vaccine: 50+ Years Completed 03/14/2019, 01/15/2015, 05/08/2013 Zoster Vaccines Completed 04/17/2021, 12/18, 12/16/2008 HIB Vaccines Aged Out No longer eligi [...] Insurance [employer] [place] [id number] Care Teams Order Detailer Relationship Specialty Start Date End Date Amaya Quigley MD [address] [place] [phone] PCP - General Internal Medicine 07/10/19
--- NOTE | 2025-05-13 12:53 | A.OFFPSYCH_ITS ---
Intake Intake Visit Reasons: depression Allergies No Known Allergies Allergy (Verified 10/31/24 13:31) HPI- Psychiatric Chief Complaint: depression Intake Note: Patient is 80-year-old female returns for management of bipolar depression chronic fatigue and chronic pain multifactorial HPI Narrative: Patient reports ongoing chronic dysphoria lack of interest apathy fatigue. Denies SI her life has been impacted by chronic lower back pain initially worsened after spinal surgery. She was seeing the spine Center here for an outpatient consult. She was not up for further surgery. Patient has a history of fibromyalgia generally done better on modafinil 50 mg with some ability to function and no manic symptoms. She states that the 50 mg no longer effective. No manic symptoms. Patient did have confusional episodes in the past taking tramadol or oxycodone during the day has been taking a tramadol at bedtime does not describe any confusional states site ability psychosis with taking tramadol which can sometimes happened and drug interaction. She is not taking it during the day. We had increase Lamictal to 150 mg patient did not want to continue at the higher dose did not find any clear benefit and has been on 100 mg. Past Psychiatric History: hx bipolar dx not manic in years has been at [facility] has hx of CFS fibro Mental Status Exam Mental Status Exam Narrative: Patient casually dressed somewhat slow-moving when seeing in back pain at times. Speech clear goal-directed logical. Patient mood depressed somewhat helpless hopeless affect appropriate to mood no psychosis some problems with concen tration alert and oriented denies active SI refuses to consider generally medication changes Assessment and Plan Assessment & Plan (1) Bipolar 1 disorder, depressed, moderate: Status: Acute Code(s): F31.32 - Bipolar disorder, current episode depressed, moderate (2) Synovial cyst of lumbar spine: Status: Acute Code(s): M71.38 - Other bursal cyst, other site (3) Chronic back pain greater than 3 months duration: Status: Acute Code(s): M54.9 - Dorsalgia, unspecified; G89.29 - Other chronic pain (4) Fibromyalgia: Status: Acute Code(s): M79.7 - Fibromyalgia (5) Chronic fatigue disorder: Status: Acute Code(s): G93.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 Plan Patient cooperative extensive discussion regarding her chronic pain and case reviewed with neuro spine service and with pain management recommendations discussed with patient. Discussed option to try modafinil at 100 mg monitor for any manic symptoms or agitation patient with chronic fatigue has responded somewhat to modafinil which in the literature can also be used off-label for bipolar depression reviewed risks benefits alternatives with patient. Continue Lamictal Counseling and coordination of Care Medication management counseling: Effectiveness, Side effects and Dosing range Diagnosis and Prognosis Counseling: Accuracy of diagnosis and Impact of diagnosis on life functions Details-Diagnosis/Prognosis counseling: encourage lite exposure l methyl folate Details: I spent [42] minutes reviewing the record, seeing the patient and documenting in the medical record. Counseling provided to the patient/caregiver as outlined below. Addressed patient/caregiver concerns regarding current medication regime including effective adherence. Addressed patient/caregiver concerns regarding diagnosis and prognosis including accuracy of diagnosis, prognosis over time, impact of diagnosis. Addressed patient/caregiver concerns regarding impact of recent stressors. 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
== END 2025-04-29 15:00 | disposition home or self-care (01) ==
LOC: HO.HOP 13:52
PROVIDERS: PCP Internal Medicine; Visit Provider Psychiatry & Neurology Psychiatry
DX: F31.32 Bipolar disorder, current episode depressed, moderate (principal); M71.38 Other bursal cyst, other site; M54.9 Dorsalgia, unspecified; G89.29 Other chronic pain; M79.7 Fibromyalgia; G93.32 Myalgic encephalomyelitis/chronic fatigue syndrome
CPT/HCPCS: 90833; 99213

== ENCOUNTER → 2025-04-29 13:52 | Outpatient (BNVA) | payer MEDICARE, SELFPAY | PROVIDERS: PCP Internal Medicine; Visit Provider Psychiatry & Neurology Psychiatry | DX: F31.32 Bipolar disorder, current episode depressed, moderate (principal); M71.38 Other bursal cyst, other site; M54.9 Dorsalgia, unspecified; G89.29 Other chronic pain; M79.7 Fibromyalgia; G93.32 Myalgic encephalomyelitis/chronic fatigue syndrome | CPT/HCPCS: 99212 ==